=== PATIENT | male | born 1930 | race Caucasian/White ===

== ENCOUNTER → 2016-05-07 | Outpatient (CLI) | payer BC ==
[~2016-05-07] MED LIST: ASPI-346 PO; CLOP1TAB15 PO; MULT-351 PO; PRLSR20 PO; SIMV20TA2 PO
[2016-05-07 09:29] LABS: BASO % 0.4 %; BASO ABS # 0.03 K/uL (0-0.2); COMPLETE YES; HEMATOCRIT 40.7 % (42-52); IG% 0.1 %; LYMPH % 19.8 %; LYMPH ABS # 1.64 K/uL (1.2-3.4); MEAN CELL VOLUME 91.1 fL (80-100); MEAN CORPUSCULAR HEMOGLOBIN 30.9 pg (25-34); MEAN CORPUSCULAR HGB CONC 33.9 g/dl (32-36); MEAN PLATELET VOLUME 10.3 fL (7.4-10.4); MONO % 7.3 %; NEUT % 70.4 %; PLATELET COUNT 221 K/uL (130-400); RED BLOOD COUNT 4.47 M/uL (4.7-6.1)
[2016-05-07 10:07] LABS: ALT/SGPT 19 U/L (12-78); BLOOD UREA NITROGEN 22 mg/dl (7-18); BUN/CREATININE RATIO 23.4 (10-20); CALCIUM 9.3 mg/dl (8.5-10.1); CARBON DIOXIDE 29 mmol/L (21-32); CHLORIDE 106 mmol/L (98-107); CHOLESTEROL 141 mg/dl (0-200); CREATININE 0.92 mg/dl (0.60-1.40); GLUCOSE 89 mg/dl (70-99); POTASSIUM 4.8 mmol/L (3.5-5.1); SODIUM 143 mmol/L (136-145); TRIGLYCERIDES 92 mg/dl (0-150); VERY LOW DENSITY LIPOPROT CALC 18 mg/dl
[2016-05-07 10:10] LABS: ALB/GLOB RATIO 1.3 (0.9-2); ALKALINE PHOSPHATASE 73 U/L (45-117); AST/SGOT 22 U/L (15-37); CHOLESTEROL/HDL RATIO 3.5; HDL CHOLESTEROL 40 mg/dl; LDL CHOLESTEROL CALCULATED 83 mg/dl
== END | disposition home or self-care (01) ==
LOC: C.LAB1850 08:42
PROVIDERS: ATTEND Nurse Practitioner Family
DX: E78.5 Hyperlipidemia, unspecified (principal); E88.9 Metabolic disorder, unspecified; R73.9 Hyperglycemia, unspecified; K21.9 Gastro-esophageal reflux disease without esophagitis

== ENCOUNTER → 2016-10-25 | Outpatient (CLI) | payer BC ==
--- NOTE | 2016-10-25 11:29 | DIAGNOSTIC IMAGING REPORT ---
LEFT PELVIS UNILATERAL HIP 1 VIEW CLINICAL HISTORY: LEFT HIP PAIN COMPARISON STUDY: Left hip 10/20/2015. FINDINGS: There is a left total hip arthroplasty. The hardware appears intact. No fracture or dislocation within the pelvis or hips. No significant periprosthetic lucency. Mild right hip osteoarthritis, unchanged. The sacrum appears intact. IMPRESSION: 1. No fracture or dislocation within the pelvis or hips. 2. Left total hip arthroplasty. The hardware is intact. Electronically signed by: Tyler Pacheco M.D. 10/25/2016 11:28 AM Dictated Date/Time: 10/25/2016 11:26 AM
== END | disposition home or self-care (01) ==
LOC: C.RDSM 08:01
PROVIDERS: ATTEND Physician Assistant
DX: Z96.642 Presence of left artificial hip joint (principal); M25.552 Pain in left hip

== ENCOUNTER → 2016-11-01 | Outpatient (CLI) | payer BC ==
[2016-11-01 09:36] LABS: BASO % 0.5 %; BASO ABS # 0.04 K/uL (0-0.2); COMPLETE YES; EOS % 1.7 %; HEMATOCRIT 39.9 % (42-52); IG% 0.2 %; LYMPH % 17.5 %; LYMPH ABS # 1.45 K/uL (1.2-3.4); MEAN CELL VOLUME 89.7 fL (80-100); MEAN CORPUSCULAR HEMOGLOBIN 30.8 pg (25-34); MEAN CORPUSCULAR HGB CONC 34.3 g/dl (32-36); MONO % 9.9 %; NEUT % 70.2 %; PLATELET COUNT 234 K/uL (130-400); RED BLOOD COUNT 4.45 M/uL (4.7-6.1); WHITE BLOOD COUNT 8.29 K/uL (4.8-10.8)
[2016-11-01 10:11] LABS: ALT/SGPT 20 U/L (12-78); BLOOD UREA NITROGEN 24 mg/dl (7-18); BUN/CREATININE RATIO 23.7 (10-20); CALCIUM 9.1 mg/dl (8.5-10.1); CARBON DIOXIDE 28 mmol/L (21-32); CHLORIDE 107 mmol/L (98-107); CHOLESTEROL 121 mg/dl (0-200); GLUCOSE 94 mg/dl (70-99); POTASSIUM 4.8 mmol/L (3.5-5.1); SODIUM 141 mmol/L (136-145); TRIGLYCERIDES 74 mg/dl (0-150); VERY LOW DENSITY LIPOPROT CALC 15 mg/dl
[2016-11-01 10:15] LABS: ALB/GLOB RATIO 1.3 (0.9-2); ALKALINE PHOSPHATASE 76 U/L (45-117); AST/SGOT 24 U/L (15-37); HDL CHOLESTEROL 40 mg/dl; LDL CHOLESTEROL CALCULATED 66 mg/dl
[2016-11-01 10:15] LABS: RATIO 28.2 mcg/mg (0-30.0)
[2016-11-01 10:28] LABS: ESTIMATED AVERAGE GLUCOSE 120 mg/dl; HA1C FLAG Normal (Normal)
== END | disposition home or self-care (01) ==
LOC: C.LAB1850 08:37
PROVIDERS: ATTEND Nurse Practitioner Family
DX: E78.5 Hyperlipidemia, unspecified (principal); E88.9 Metabolic disorder, unspecified; R73.9 Hyperglycemia, unspecified; N40.1 Benign prostatic hyperplasia with lower urinary tract symptoms

== ENCOUNTER → 2017-05-08 | Outpatient (CLI) | payer BC ==
[2017-05-08 12:25] LABS: HEMOGLOBIN A1C 5.8 % (4.5-5.6)
[2017-05-08 12:39] LABS: ALT/SGPT 21 U/L (12-78); AST/SGOT 22 U/L (15-37); BLOOD UREA NITROGEN 26 mg/dl (7-18); CALCIUM 8.9 mg/dl (8.5-10.1); CARBON DIOXIDE 26 mmol/L (21-32); CHOLESTEROL 124 mg/dl (0-200); CREATININE 1.02 mg/dl (0.60-1.40); GLUCOSE 94 mg/dl (70-99); POTASSIUM 4.2 mmol/L (3.5-5.1); SODIUM 139 mmol/L (136-145)
[2017-05-08 12:41] LABS: ALKALINE PHOSPHATASE 77 U/L (45-117); LDL CHOLESTEROL CALCULATED 65 mg/dl
== END | disposition home or self-care (01) ==
LOC: C.LAB1850 09:56
PROVIDERS: ATTEND Nurse Practitioner Family
DX: E78.5 Hyperlipidemia, unspecified (principal); K21.9 Gastro-esophageal reflux disease without esophagitis; R73.9 Hyperglycemia, unspecified

== ENCOUNTER 2017-07-09 21:20 | Emergency (ER) | payer BC ==
[~2017-07-09] VITALS: Ht 180.3 cm; Wt 79.3 kg
[2017-07-09 21:20] VITALS: TEMP 36.7; Ht 180.3 cm; Wt 79.3 kg
--- NOTE | 2017-07-09 22:01 | DIAGNOSTIC IMAGING REPORT ---
L KNEE 1 OR 2 VIEWS ROUTINE CLINICAL HISTORY: Left knee pain status post fall. COMPARISON: Left knee radiographs August 12, 2012. FINDINGS: Alignment of the total left knee arthroplasty is anatomic. No periprosthetic fracture is identified. There is a small left knee joint effusion. IMPRESSION: 1. Status post total left knee arthroplasty. No periprosthetic fracture. 2. Small left knee joint effusion. Electronically signed by: Miach Jordan M.D. 07/09/2017 10:00 PM Dictated Date/Time: 07/09/2017 9:59 PM
--- NOTE | 2017-07-09 22:20 | EMERGENCY ROOM VISIT NOTE ---
ED Visit Note First contact with patient: 21:26 I have personally seen and evaluated the patient with the physician registered medical assistant. I agree with the diagnostic/management decisions and have personally been involved in these decisions and agree with the diagnosis.
--- NOTE | 2017-07-09 22:48 | EMERGENCY ROOM VISIT NOTE ---
History First contact with patient: 21:26 Chief Complaint: FALL Stated Complaint: FALL, L KNEE & UPPER LEG PAIN History of Present Illness The patient is a 86 year old male who presents to the Emergency Room with complaints of left knee pain and swelling after tripping and falling in his home this evening. The patient was carrying a laundry basket and tripped on a metal footstool. The patient reports that he fell and struck his left knee on the metal rail under a countertop. The patient reports that he was able to get up and walk, but since his fall, has noticed significant swelling of the knee. The patient is status post left total knee arthroplasty performed by Dr. Rivera many years ago. He also has a history of left total hip arthroplasty performed by Dr. Perez. The patient denies any other injuries from his fall, and denies head injury, neck pain or back pain. The patient is currently on Plavix and baby aspirin for prior history of cerebral thrombosis. The patient was transported here by ambulance and currently rates his discomfort a 5 out of 10 on my exam. Review of Systems 10 system review was performed and was negative except for pertinent positives and negatives as indicated in history of present illness Past Medical/Surgical History Medical Problems: (1) Cerebral Thrombosis W Cerebral Infarction (2) Diverticulosis Colon (W/O Ment Of Hemorrhage) (3) GERD (gastroesophageal reflux disease) (4) Hyperlipidemia Nec/Nos Surgical Problems: (1) History of hernia repair Family History Cancer Diabetes mellitus FHx: gallbladder disease Social History Smoking Status: Former Smoker Alcohol Use: none Marital Status: Housing Status: lives with significant other Occupation Status: retired Current/Historical Medications Scheduled Aspirin (Derrick Low Dose), 81 MG PO QAM Clopidogrel (Plavix), 75 MG PO QAM Multiple Vitamin (Multi Vitamin Mens), 1 TAB PO DAILY Omeprazole (Prilosec), 20 MG PO DAILY Simvastatin (Zocor), 20 MG PO DAILY Physical Exam Vital Signs Date Time Temp Pulse Resp B/P (MAP) Pulse Ox O2 Delivery O2 Flow Rate FiO2 07/09/17 21:20 36.7 54 18 154/86 98 Room Air Physical Exam CONSTITUTIONAL: Healthy and well nourished. Alert and oriented X 3 with positive affect. Patient does not appear in any acute distress on my exam. HEENT: Normocephalic, atraumatic. Pupils equal, round and reactive. No abrasions, ecchymosis or soft tissue edema. NECK: Full active range of motion without discomfort. RESPIRATORY: Clear to auscultation bilaterally with no wheezing, crackles, rhonchi or stridor. CARDIOVASCULAR: Regular rate and rhythm with no murmurs, rubs or gallops. GASTROINTESTINAL: Bowel sounds present in all quadrants. Soft and nontender to palpation. MUSCULOSKELETAL: Examination of the left knee shows notable lateral soft tissue edema and ecchymosis. No lacerations noted. Patient also has a 2+ joint effusion. Collateral ligaments are intact. He has no focal tenderness to palpation through the medial joint line. Passive range of motion causes only mild discomfort. Patient has no tenderness to palpation through the tibia or ankle region. Pedal pulses are intact. Negative logroll. Pelvis stable with rock. No focal tenderness to palpation through the central lumbar spine or paraspinous muscles. INTEGUMENTARY: No rash or other significant dermatologic conditions noted. NEUROLOGIC: Left lower extremity is sensory intact. Medical Decision & Procedures ER Provider Diagnostic Interpretation: My interpretation of left knee x-rays shows a small joint effusion without evidence for dislocation or periprosthetic fracture. Radiologist report is as follows: L KNEE 1 OR 2 VIEWS ROUTINE CLINICAL HISTORY: Left knee pain status post fall. COMPARISON: Left knee radiographs August 12, 2012. FINDINGS: Alignment of the total left knee arthroplasty is anatomic. No periprosthetic fracture is identified. There is a small left knee joint effusion. IMPRESSION: 1. Status post total left knee arthroplasty. No periprosthetic fracture. 2. Small left knee joint effusion. ED Course Patient history and physical exam were performed. Nurse's notes were reviewed. Vital signs were reviewed, showing an elevated blood pressure 154/86. The patient refused any analgesics on initial exam. X-rays of the left knee were normal except for a mild joint effusion. An Gaetano wrap was applied to the knee, and trial ambulation using a walker was successful. The patient reports that he has a walker at home. He was encouraged intermittently apply ice and elevate the knee for swelling. Tylenol as needed for pain. The family was instructed to call [facility] for follow-up. The patient was happy with plan of care, voiced understanding of all discharge instructions, and refused any analgesics prior to discharge, rating his pain a 6 out of 10. The patient was also seen and examined by Dr. Mishock, ED attending physician, who agrees with workup and plan of care. Medical Decision Medication Reconcilliation Current Medication List: was personally reviewed by me Blood Pressure Screening Patient's blood pressure: Normal blood pressure Impression Primary Impression: Traumatic hematoma of left knee Additional Impression: Fall from slip, trip, or stumble Departure Information Referrals Iván Sanz III, CRNP (PCP) Patient Instructions My [facility] Problem Qualifiers Primary Impression: Traumatic hematoma of left knee Encounter type: initial encounter Qualified Codes: S80.02XA - Contusion of left knee, initial encounter Additional Impression: Fall from slip, trip, or stumble Encounter type: initial encounter Qualified Codes: W01.0XXA - Fall on same level from slipping, tripping and stumbling without subsequent striking against object, initial encounter
[2017-07-09 23:00] VITALS: BP 135/60; PULSE 50; O2SAT 99
== END 2017-07-09 23:00 | disposition home or self-care (01) ==
LOC: EDBD 21:20 → C.EDB 21:21
DX: S80.02XA Contusion of left knee, initial encounter (principal); W01.0XXA Fall on same level from slipping, tripping and stumbling without subsequent striking against object, initial encounter; E78.5 Hyperlipidemia, unspecified; K57.30 Diverticulosis of large intestine without perforation or abscess without bleeding; K21.9 Gastro-esophageal reflux disease without esophagitis; Z96.652 Presence of left artificial knee joint; Z96.642 Presence of left artificial hip joint; Z79.01 Long term (current) use of anticoagulants; Z79.82 Long term (current) use of aspirin; Z86.73 Personal history of transient ischemic attack (TIA), and cerebral infarction without residual deficits; Z87.891 Personal history of nicotine dependence; Z83.3 Family history of diabetes mellitus

== ENCOUNTER → 2017-07-10 | Outpatient (CLI) | payer BC ==
--- NOTE | 2017-07-10 14:17 | DIAGNOSTIC IMAGING REPORT ---
AP PELVIS AND FROG LEG LATERAL LEFT HIP CLINICAL HISTORY: S/P TOTAL HIP ARTHROPLASTY. Fall. Left hip pain. COMPARISON STUDY: Pelvis and left hip 10/25/2016. FINDINGS: There is again noted a left total hip arthroplasty. The hardware appears intact. No acute fracture or dislocation within the left hip. Visualized pelvic bones. Mild osteoarthritis within the right hip persists. Mild soft tissue swelling within the lateral aspect of the left hip. IMPRESSION: No fracture or dislocation within the left hip. Electronically signed by: Tyelr Pacheco M.D. 07/10/2017 2:16 PM Dictated Date/Time: 07/10/2017 2:13 PM
== END | disposition home or self-care (01) ==
LOC: C.RDSM 14:10
PROVIDERS: ATTEND Physician Assistant
DX: Z96.642 Presence of left artificial hip joint (principal)

== ENCOUNTER 2020-05-06 14:51 | Observation (INO) ==
[2020-05-06] MEDS ORDERED: SODIUM CHLORIDE 0.9% 1000ML 1,000 ML IV STA (14:58)
--- NOTE | 2020-05-06 15:23 | Emergency Department Note ---
Impression & Plan SOB (shortness of breath) ED Provider Note INFORMANT: Patient ED PROVIDER(S): Tobias Petersen MD CHIEF COMPLAINT: Shortness of breath PLAN: Disposition: Admitted Condition: Good Outpatient prescription management: none Referral: None MEDICAL DECISION MAKING: Patient presented to the emergency department with shortness of breath. There is also some concern about possible GI bleed. Rectal examination was negative. A repeat test on stool was negative as well. The patient had an unremarkable CBC and chemistry panel. His troponin was normal. There was some delay in resulting from the lab. The patient's BNP was markedly elevated concerning for CHF. There was mild CHF findings on chest x-ray. The patient was maintaining his saturations and blood pressure. I did consult with Dr. Hester of cardiology. He felt initiation of diuretic would be reasonable. He could see the patient tomorrow if he was admitted or if the patient wanted to go home he could start the work-up next week. I did talk with the patient's daughter and she noted significant increase symptoms over the last few days. She was concerned about him going home as he lives alone. I discussed this with the patient and he agreed to stay. He was given IV Lasix and oral potassium. I did consult with Dr. Oswald Bee of the hospitalist service. Patient was admitted. Triage Nursing notes reviewed and agree them. Additional history obtained from patient's daughter. Vital Signs: reviewed and remarkable for no significant abnormalities Differential diagnosis: GI bleed, symptomatic anemia reactive airway disease, pneumonia, pneumothorax, COPD, CHF, infections, cardiac ischemia, pulmonary embolism, musculoskeletal, gastrointestinal, as well as other pathologies. Diagnostics interpreted by me: ECG: Rate: 69 Rhythm:Normal sinus [place]:Normal QRS:Normal ST segements:No elevation or depression Other:No PACs or PVCs Cardiac Monitoring: Cardiac monitoring ordered by me: The patient was placed on continuous cardiac monitoring and observed. It revealed a normal sinus rhythm at 72 beats per minute without ectopy or evidence of dysrhythmia. Imaging studies: Chest x-ray consistent with mild CHF. I refer you to the EMR for further details HPI: The patient is a 89 year old male who presents to the Emergency Room with complaints of dyspnea on exertion. This started a few weeks ago and is persisting The patient also notes the following associated symptoms, black stools and little diarrhea. The patient has has been prescribed no relieving factors. Current pain is rated as 0/10. Pt denies LOC, headache, fevers, chills, diaphoresis, visual changes, neck pain, chest pain, nausea, vomiting, abdominal pain, back pain, hematochezia, urinary symptoms, numbness, weakness, lymphadenopathy, rash, or other complaints. ROS: See above HPI for pertinent positives & negatives. A total of 10 systems reviewed and were otherwise negative. PAST MEDICAL HISTORY:See Below , GERD, high cholesterol PAST SURGICAL HISTORY:See Below, FAMILY HISTORY:See Below SOCIAL HISTORY:See Below, HOME MEDICATIONS:See Below ALLERGIES:See Below VITALS:See Below PHYSICAL EXAMINATION: GENERAL: Awake, alert, tired-appearing, in no distress HENT: Normocephalic, atraumatic. Oropharynx unremarkable. EYES: Normal conjunctiva. Sclera non-icteric. NECK: Inspection normal. Non-tender. Supple. No nuchal rigidity. FROM. No mass es. RESPIRATORY: Clear to auscultation. No wheezes. No rales. Normal respiratory effort. CARDIAC: Normal rate. Normal rhythm. No murmurs. No rubs. Extremities warm and well perfused. Pulses equal. No JVD. GI: Soft, non-distended. No tenderness to palpation. No rebound or guarding. No masses. RECTAL: Brown stool. Heme-negative. MUSCULOSKELETAL: Atraumatic. Chest examination reveals no tenderness. The back is symmetrical on inspection without obvious abnormality. There is no CVA tenderness to palpation. No joint edema. LOWER EXTREMITIES: Calves are equal size bilaterally and non-tender. Trace edema. No discoloration. NEURO: Normal sensorium. No sensory or motor deficits noted. SKIN: No rash or jaundice noted. 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) Diverticulosis of colon (03/08/11) Head injury Need for immunization against rabies Surgical History History of hernia repair History of left knee replacement Family History Sister Breast cancer Mother Diabetes Denies family history of Ovarian cancer Prostate cancer Myocardial infarction Colorectal cancer Social History Smoking Status: Never smoker Tobacco Type: Pipe Age Started Using Tobacco: 21; Age Quit Using Tobacco: 41; Hx Alcohol Use: No Hx Substance Use: No Preferred Language: Ukrainian Communication Ability: Effective Visual Impairment: No Limitations Hearing Ability: Normal marital status: / Current Living Situation: Alone current occupational status: retired Feels Safe at Home: Yes Childhood Exposure to Second-Hand Smoke: No Dental Care, Regularly: No Physical Activity Frequency: Does not Exercise Seatbelt Use: always Sunscreen Use: No Do you think of yourself as: straight/heterosexual Allergies Allergies Allergy/AdvReac Type Severity Reaction Status Date / Time Sulfa (Sulfonamide Allergy Mild Rash Verified 05/06/20 15:56 Antibiotics) Home Meds Home Medications Medication Instructions Recorded Confirmed aspirin 81 mg tablet,delayed 81 mg PO DAILY 01/01/19 05/06/20 release [id number] acid 0.4 1 tab PO DAILY 01/01/19 05/06/20 mg-lycopene 300 mcg-lutein 250 mcg tablet Previous Rx's Medication Instructions Recorded clopidogrel 75 mg tablet 75 mg PO DAILY #90 tab 10/20/19 omeprazole 20 mg capsule,delayed 20 mg PO DAILY #90 cap 10/20/19 release simvastatin 20 mg tablet 20 mg PO QPM #90 tab 10/20/19 Results & Data (ED) Vital Signs Vital Signs - 24 hr 05/06/20 14:54 05/06/20 15:30 05/06/20 15:48 Temperature 36.2 C L Temperature Source Oral Pulse Rate 80 62 Pulse Rate [Apical] Pulse Rate [Exercises] Pulse Rate from SpO2 Sensor Respiratory Rate 20 21 Respiratory Rate [Exercises] Blood Pressure 114/81 Blood Pressure [Right Arm] Blood Pressure Mean 92 Blood Pressure Mean [Right Arm] Pulse Oximetry 98 96 Pulse Oximetry [Exercises] Oxygen Delivery Method Room Air Room Air Sepsis Recent Fever Within 48 Hours No Sepsis New/Unexplained Change in Mental Status N/A Sepsis Action Taken by Nursing No Action Required 05/06/20 15:50 05/06/20 16:00 05/06/20 16:01 Temperature Temperature Source Pulse Rate 62 63 61 Pulse Rate [Apical] Pulse Rate [Exercises] Pulse Rate from SpO2 Sensor Respiratory Rate 20 21 21 Respiratory Rate [Exercises] Blood Pressure 109/68 Blood Pressure [Right Arm] Blood Pressure Mean 79 Blood Pressure Mean [Right Arm] Pulse Oximetry Pulse Oximetry [Exercises] Oxygen Delivery Method Sepsis Recent Fever Within 48 Hours Sepsis New/Unexplained Change in Mental Status Sepsis Action Taken by Nursing 05/06/20 16:10 05/06/20 16:20 05/06/20 16:30 Temperature Temperature Source Pulse Rate 61 60 61 Pulse Rate [Apical] Pulse Rate [Exercises] Pulse Rate from SpO2 Sensor Respiratory Rate 19 17 20 Respiratory Rate [Exercises] Blood Pressure 129/60 Blood Pressure [Right Arm] Blood Pressure Mean 74 Blood Pressure Mean [Right Arm] Pulse Oximetry Pulse Oximetry [Exercises] Oxygen Delivery Method Sepsis Recent Fever Within 48 Hours Sepsis New/Unexplained Change in Mental Status Sepsis Action Taken by Nursing 05/06/20 16:31 05/06/20 16:40 05/06/20 16:50 Temperature Temperature Source Pulse Rate 64 62 61 Pulse Rate [Apical] Pulse Rate [Exercises] Pulse Rate from SpO2 Sensor Respiratory Rate 19 19 21 Respiratory Rate [Exercises] Blood Pressure Blood Pressure [Right Arm] Blood Pressure Mean Blood Pressure Mean [Right Arm] Pulse Oximetry Pulse Oximetry [Exercises] Oxygen Delivery Method Sepsis Recent Fever Within 48 Hours Sepsis New/Unexplained Change in Mental Status Sepsis Action Taken by Nursing 05/06/20 17:00 05/06/20 17:01 05/06/20 17:10 Temperature Temperature Source Pulse Rate 62 62 62 Pulse Rate [Apical] Pulse Rate [Exercises] Pulse Rate from SpO2 Sensor Respiratory Rate 19 15 19 Respiratory Rate [Exercises] Blood Pressure 122/70 Blood Pressure [Right Arm] Blood Pressure Mean 81 Blood Pressure Mean [Right Arm] Pulse Oximetry Pulse Oximetry [Exercises] Oxygen Delivery Method Sepsis Recent Fever Within 48 Hours Sepsis New/Unexplained Change in Mental Status Sepsis Action Taken by Nursing 05/06/20 17:20 05/06/20 17:30 05/06/20 17:31 Temperature Temperature Source Pulse Rate 62 72 70 Pulse Rate [Apical] Pulse Rate [Exercises] Pulse Rate from SpO2 Sensor 62 Respiratory Rate 20 21 22 Respiratory Rate [Exercises] Blood Pressure 122/96 Blood Pressure [Right Arm] Blood Pressure Mean 100 Blood Pressure Mean [Right Arm] Pulse Oximetry 98 Pulse Oximetry [Exercises] Oxygen Delivery Method Sepsis Recent Fever Within 48 Hours Sepsis New/Unexplained Change in Mental Status Sepsis Action Taken by Nursing 05/06/20 17:40 05/06/20 17:50 05/06/20 18:00 Temperature Temperature Source Pulse Rate 63 64 64 Pulse Rate [Apical] Pulse Rate [Exercises] Pulse Rate from SpO2 Sensor Respiratory Rate 16 21 22 Respiratory Rate [Exercises] Blood Pressure 114/72 Blood Pressure [Right Arm] Blood Pressure Mean 80 Blood Pressure Mean [Right Arm] Pulse Oximetry Pulse Oximetry [Exercises] Oxygen Delivery Method Sepsis Recent Fever Within 48 Hours Sepsis New/Unexplained Change in Mental Status Sepsis Action Taken by Nursing 05/06/20 18:01 05/06/20 18:18 05/06/20 18:20 Temperature Temperature Source Pulse Rate 64 79 64 Pulse Rate [Apical] Pulse Rate [Exercises] Pulse Rate from SpO2 Sensor Respiratory Rate 24 24 20 Respiratory Rate [Exercises] Blood Pressure Blood Pressure [Right Arm] Blood Pressure Mean Blood Pressure Mean [Right Arm] Pulse Oximetry Pulse Oximetry [Exercises] Oxygen Delivery Method Sepsis Recent Fever Within 48 Hours Sepsis New/Unexplained Change in Mental Status Sepsis Action Taken by Nursing 05/06/20 18:30 05/06/20 18:40 05/06/20 18:50 Temperature Temperature Source Pulse Rate 64 61 63 Pulse Rate [Apical] Pulse Rate [Exercises] Pulse Rate from SpO2 Sensor 57 L 61 Respiratory Rate 16 19 22 Respiratory Rate [Exercises] Blood Pressure Blood Pressure [Right Arm] Blood Pressure Mean Blood Pressure Mean [Right Arm] Pulse Oximetry 96 96 Pulse Oximetry [Exercises] Oxygen Delivery Method Sepsis Recent Fever Within 48 Hours Sepsis New/Unexplained Change in Mental Status Sepsis Action Taken by Nursing 05/06/20 18:51 05/06/20 19:00 05/06/20 19:10 Temperature Temperature Source Pulse Rate 58 L 63 Pulse Rate [Apical] Pulse Rate [Exercises] 78 Pulse Rate from SpO2 Sensor Respiratory Rate 21 18 Respiratory Rate [Exercises] 21 Blood Pressure Blood Pressure [Right Arm] Blood Pressure Mean Blood Pressure Mean [Right Arm] Pulse Oximetry Pulse Oximetry [Exercises] 94 Oxygen Delivery Method Room Air Sepsis Recent Fever Within 48 Hours Sepsis New/Unexplained Change in Mental Status Sepsis Action Taken by Nursing 05/06/20 19:20 05/06/20 19:30 05/06/20 19:40 Temperature Temperature Source Pulse Rate 59 L 61 58 L Pulse Rate [Apical] Pulse Rate [Exercises] Pulse Rate from SpO2 Sensor Respiratory Rate 22 20 18 Respiratory Rate [Exercises] Blood Pressure Blood Pressure [Right Arm] Blood Pressure Mean Blood Pressure Mean [Right Arm] Pulse Oximetry Pulse Oximetry [Exercises] Oxygen Delivery Method Sepsis Recent Fever Within 48 Hours Sepsis New/Unexplained Change in Mental Status Sepsis Action Taken by Nursing 05/06/20 19:50 05/06/20 20:00 05/06/20 20:10 Temperature Temperature Source Pulse Rate 57 L 57 L 58 L Pulse Rate [Apical] Pulse Rate [Exercises] Pulse Rate from SpO2 Sensor Respiratory Rate 17 25 H 25 H Respiratory Rate [Exercises] Blood Pressure Blood Pressure [Right Arm] Blood Pressure Mean Blood Pressure Mean [Right Arm] Pulse Oximetry Pulse Oximetry [Exercises] Oxygen Delivery Method Sepsis Recent Fever Within 48 Hours Sepsis New/Unexplained Change in Mental Status Sepsis Action Taken by Nursing 05/06/20 20:20 05/06/20 20:30 05/06/20 20:40 Temperature Temperature Source Pulse Rate 58 L 64 68 Pulse Rate [Apical] Pulse Rate [Exercises] Pulse Rate from SpO2 Sensor Respiratory Rate 23 18 12 Respiratory Rate [Exercises] Blood Pressure Blood Pressure [Right Arm] Blood Pressure Mean Blood Pressure Mean [Right Arm] Pulse Oximetry Pulse Oximetry [Exercises] Oxygen Delivery Method Sepsis Recent Fever Within 48 Hours Sepsis New/Unexplained Change in Mental Status Sepsis Action Taken by Nursing 05/06/20 20:50 05/06/20 21:00 05/06/20 21:10 Temperature Temperature Source Pulse Rate 58 L 58 L 58 L Pulse Rate [Apical] Pulse Rate [Exercises] Pulse Rate from SpO2 Sensor Respiratory Rate 18 15 22 Respiratory Rate [Exercises] Blood Pressure Blood Pressure [Right Arm] Blood Pressure Mean Blood Pressure Mean [Right Arm] Pulse Oximetry Pulse Oximetry [Exercises] Oxygen Delivery Method Sepsis Recent Fever Within 48 Hours Sepsis New/Unexplained Change in Mental Status Sepsis Action Taken by Nursing 05/06/20 21:17 05/06/20 21:20 05/06/20 21:21 Temperature Temperature Source Pulse Rate 64 Pulse Rate [Apical] 70 Pulse Rate [Exercises] Pulse Rate from SpO2 Sensor Respiratory Rate 19 14 20 Respiratory Rate [Exercises] Blood Pressure 109/62 Blood Pressure [Right Arm] 109/62 Blood Pressure Mean 75 Blood Pressure Mean [Right Arm] 77 Pulse Oximetry 98 Pulse Oximetry [Exercises] Oxygen Delivery Method Room Air Sepsis Recent Fever Within 48 Hours Sepsis New/Unexplained Change in Mental Status Sepsis Action Taken by Nursing Laboratory Data Result diagrams: 05/06/20 15:18 05/06/20 15:18 Lab Results 05/06/20 05/06/20 05/06/20 Range/Units 15:18 15:18 15:18 WBC 7.73 (4.8-10.8) K/uL RBC 4.50 L (4.7-6.1) M/uL Hgb 13.9 L (14.0-18.0) g/dL Hct 39.2 L (42-52) % MCV 87.1 (80-100) fL MCH 30.9 (25-34) pg MCHC 35.5 (32-36) g/dL RDW Std Deviation 43.4 (36.4-46.3) fL RDW Coeff of Lukas 13.6 (11.5-14.5) % Plt Count 277 (130-400) K/uL MPV 10.7 H (7.4-10.4) fL Immature Gran % (Auto) 0.1 % Neut % (Auto) 60.0 % Lymph % (Auto) 17.5 % [place] % (Auto) 20.1 % Eos % (Auto) 2.2 % Baso % (Auto) 0.1 % Neut # (Auto) 4.64 (1.4-6.5) K/uL Lymph # (Auto) 1.35 (1.2-3.4) K/uL [place] # (Auto) 1.55 H (0.11-0.59) K/uL Eos # (Auto) 0.17 (0-0.5) K/uL Baso # (Auto) 0.01 (0-0.2) K/uL Immature Gran # (Auto) 0.01 (0.00-0.02) K/uL PT 12.1 H (9.0-12.0) Seconds INR 1.2 H (0.9-1.1) APTT 29.1 (21.0-31.0) Seconds PTT Ratio 1.0 Sodium (136-145) mmol/L Potassium (3.5-5.1) mmol/L Chloride (98-107) mmol/L Carbon Dioxide (21-32) mmol/L Anion Gap (3-11) BUN (7-18) mg/dl Creatinine (0.6-1.4) mg/dl Est Cr Clr Drug Dosing ml/min Est GFR ( Amer) Est GFR (Non-Af Amer) BUN/Creatinine Ratio (10-20) Glucose (70-99) mg/dl Calcium (8.5-10.1) mg/dl Total Bilirubin (0.2-1) mg/dl AST (15-37) U/L ALT (12-78) U/L Alkaline Phosphatase (45-117) U/L Troponin I (0-0.045) ng/ml NT-Pro-B Natriuret Pep (0-1800) pg/ml Total Protein (6.4-8.2) gm/dl Albumin (3.4-5.0) gm/dl Globulin (2.5-4.0) gm/dl Albumin/Globulin Ratio (0.9-2) POC Stool Occult Blood (Negative) COVID-19 Eval Order SARS-CoV-2 (PCR) (Negative) Influenza Type A (PCR) (Neg) Influenza Type B (PCR) (Neg) RSV (RT-PCR) (Neg) Blood Type A Positive Antibody Screen NEGATIVE 05/06/20 05/06/20 05/06/20 Range/Units 15:18 15:30 15:30 WBC (4.8-10.8) K/uL RBC (4.7-6.1) M/uL Hgb (14.0-18.0) g/dL Hct (42-52) % MCV (80-100) fL MCH (25-34) pg MCHC (32-36) g/dL RDW Std Deviation (36.4-46.3) fL RDW Coeff of Lukas (11.5-14.5) % Plt Count (130-400) K/uL MPV (7.4-10.4) fL Immature Gran % (Auto) % Neut % (Auto) % Lymph % (Auto) % [place] % (Auto) % Eos % (Auto) % Baso % (Auto) % Neut # (Auto) (1.4-6.5) K/uL Lymph # (Auto) (1.2-3.4) K/uL [place] # (Auto) (0.11-0.59) K/uL Eos # (Auto) (0-0.5) K/uL Baso # (Auto) (0-0.2) K/uL Immature Gran # (Auto) (0.00-0.02) K/uL PT (9.0-12.0) Seconds INR (0.9-1.1) APTT (21.0-31.0) Seconds PTT Ratio Sodium 137 (136-145) mmol/L Potassium 3.5 (3.5-5.1) mmol/L Chloride 105 (98-107) mmol/L Carbon Dioxide 22 (21-32) mmol/L Anion Gap 10.0 (3-11) BUN 36 H (7-18) mg/dl Creatinine 1.55 H (0.6-1.4) mg/dl Est Cr Clr Drug Dosing 30.8 ml/min Est GFR ( Amer) 45.6 Est GFR (Non-Af Amer) 39.4 BUN/Creatinine Ratio 22.9 H (10-20) Glucose 106 H (70-99) mg/dl Calcium 9.0 (8.5-10.1) mg/dl Total Bilirubin 0.6 (0.2-1) mg/dl AST 33 (15-37) U/L ALT 40 (12-78) U/L Alkaline Phosphatase 84 (45-117) U/L Troponin I (0-0.045) ng/ml NT-Pro-B Natriuret Pep 4887 H (0-1800) pg/ml Total Protein 7.2 (6.4-8.2) gm/dl Albumin 3.4 (3.4-5.0) gm/dl Globulin 3.8 (2.5-4.0) gm/dl Albumin/Globulin Ratio 0.9 (0.9-2) POC Stool Occult Blood (Negative) COVID-19 Eval Order [facility]Rsv at [facility] SARS-CoV-2 (PCR) NEGATIVE (Negative) Influenza Type A (PCR) Negative (Neg) Influenza Type B (PCR) Negative (Neg) RSV (RT-PCR) Negative (Neg) Blood Type Antibody Screen 05/06/20 05/06/20 Range/Units 19:13 Unknown WBC (4.8-10.8) K/uL RBC (4.7-6.1) M/uL Hgb (14.0-18.0) g/dL Hct (42-52) % MCV (80-100) fL MCH (25-34) pg MCHC (32-36) g/dL RDW Std Deviation (36.4-46.3) fL RDW Coeff of Lukas (11.5-14.5) % Plt Count (130-400) K/uL MPV (7.4-10.4) fL Immature Gran % (Auto) % Neut % (Auto) % Lymph % (Auto) % [place] % (Auto) % Eos % (Auto) % Baso % (Auto) % Neut # (Auto) (1.4-6.5) K/uL Lymph # (Auto) (1.2-3.4) K/uL [place] # (Auto) (0.11-0.59) K/uL Eos # (Auto) (0-0.5) K/uL Baso # (Auto) (0-0.2) K/uL Immature Gran # (Auto) (0.00-0.02) K/uL PT (9.0-12.0) Seconds INR (0.9-1.1) APTT (21.0-31.0) Seconds PTT Ratio Sodium (136-145) mmol/L Potassium (3.5-5.1) mmol/L Chloride (98-107) mmol/L Carbon Dioxide (21-32) mmol/L Anion Gap (3-11) BUN (7-18) mg/dl Creatinine (0.6-1.4) mg/dl Est Cr Clr Drug Dosing ml/min Est GFR ( Amer) Est GFR (Non-Af Amer) BUN/Creatinine Ratio (10-20) Glucose (70-99) mg/dl Calcium (8.5-10.1) mg/dl Total Bilirubin (0.2-1) mg/dl AST (15-37) U/L ALT (12-78) U/L Alkaline Phosphatase (45-117) U/L Troponin I < 0.015 (0-0.045) ng/ml NT-Pro-B Natriuret Pep (0-1800) pg/ml Total Protein (6.4-8.2) gm/dl Albumin (3.4-5.0) gm/dl Globulin (2.5-4.0) gm/dl Albumin/Globulin Ratio (0.9-2) POC Stool Occult Blood Negative (Negative) COVID-19 Eval Order SARS-CoV-2 (PCR) (Negative) Influenza Type A (PCR) (Neg) Influenza Type B (PCR) (Neg) RSV (RT-PCR) (Neg) Blood Type Antibody Screen Administered Medications Sodium Chloride (Nss 1000ml) 1,000 mls @ 125 mls/hr IV .Q8H STA Stop: 05/06/20 22:57 Last Infusion: 05/06/20 21:22 Dose: 0 mls/hr Documented by: [id number] Admin: 05/06/20 15:45 Dose: 125 mls/hr Documented by: [id number] Discontinued Medications Furosemide (Furosemide 40 Mg/4 Ml Vial) 20 mg IV NOW STA Stop: 05/06/20 21:08 Last Admin: 05/06/20 21:14 Dose: 20 mg Documented by: [id number] Potassium Chloride (Potassium Chloride Crtab 20 Meq Tabcr) 20 meq PO NOW STA Stop: 05/06/20 21:08 Last Admin: 05/06/20 21:14 Dose: 20 meq Documented by: [id number] Discharge Plan Visit Data Chief Complaint: GI Bleed Stated Complaint: SOB, DIARRHEA, FATIQUED, CAN'T EAT,BLACK STOOL ED Provider: Tobias Petersen Discharge Problem: SOB (shortness of breath) Forms Stand Alone Forms: My [facility] Prescriptions Prescriptions: No Action clopidogrel 75 mg tablet 75 mg PO DAILY Qty: 90 RF: 3 omeprazole 20 mg capsule,delayed release(DR/EC) 20 mg PO DAILY Qty: 90 RF: 3 simvastatin 20 mg tablet 20 mg PO QPM Qty: 90 RF: 3 Centrum Silver 0.4-300-250 mg-mcg-mcg tablet 1 tab PO DAILY RF: 0 aspirin 81 mg tablet,delayed release (DR/EC) 81 mg PO DAILY RF: 0
[2020-05-06 15:51] LABS: Basophils # (auto) 0.01 K/uL (0-0.2); Basophils % (auto) 0.1 %; Eosinophils # (auto) 0.17 K/uL (0-0.5); Eosinophils % (auto) 2.2 %; Hematocrit (blood only) 39.2 % (42-52); Hemoglobin 13.9 g/dL (14.0-18.0); Immature Granulocytes # (auto) 0.01 K/uL (0.00-0.02); Immature Granulocytes % (auto) 0.1 %; Lymphocytes # (auto) 1.35 K/uL (1.2-3.4); Lymphocytes % (auto) 17.5 %; Mean Corpuscular Hemoglobin 30.9 pg (25-34); Mean Corpuscular Hgb Conc 35.5 g/dL (32-36); Mean Corpuscular Volume 87.1 fL (80-100); Mean Platelet Volume 10.7 fL (7.4-10.4); Monocytes # (auto) 1.55 K/uL (0.11-0.59); Monocytes % (auto) 20.1 %; Neutrophils # (auto) 4.64 K/uL (1.4-6.5); Platelet Count 277 K/uL (130-400); RDW Coefficient of Variation 13.6 % (11.5-14.5); RDW Standard Deviation 43.4 fL (36.4-46.3); White Blood Count 7.73 K/uL (4.8-10.8)
[2020-05-06 16:03] LABS: INR 1.2 (0.9-1.1); Partial Thromboplastin Time 29.1 Seconds (21.0-31.0); Prothrombin Time 12.1 Seconds (9.0-12.0)
[2020-05-06 16:08] LABS: Albumin Level 3.4 gm/dl (3.4-5.0); BUN Creatinine Ratio 22.9 (10-20); Creatinine Clr Calc Pharmacy 30.8 ml/min; Est GFR (African American) 45.6; Est GFR (Non-African American) 39.4; Potassium 3.5 mmol/L (3.5-5.1)
[2020-05-06 16:20] LABS: Albumin Globulin Ratio 0.9 (0.9-2); Bilirubin,Total 0.6 mg/dl (0.2-1); Total Protein 7.2 gm/dl (6.4-8.2)
[2020-05-06 17:07] LABS: Influenza A virus by PCR Negative (Neg); Influenza B virus by PCR Negative (Neg); RSV by PCR Negative (Neg); SARS CoV2 RNA(COVID-19) InHosp NEGATIVE (Negative)
[2020-05-06 17:18] LABS: Globulin 3.8 gm/dl (2.5-4.0)
--- NOTE | 2020-05-06 17:40 | XRay Report ---
XR chest 1V portable CLINICAL HISTORY: Shortness of breath COMPARISON STUDY: 10/17/2012 FINDINGS: The cardiac and mediastinal contours remain stable. There is mild scoliosis. There is aorti c tortuosity. There is mild interstitial thickening. Likely diagnostic considerations include mild CH F, chronic interstitial lung disease or an interstitial infectious/inflammatory process. There are ca lcified right infrahilar granulomas. There is no lobar consolidation. There are no pleural effusions. IMPRESSION: 1. Mild interstitial thickening. Likely diagnostic considerations include mild CHF, chronic interstit ial lung disease or an acute interstitial infectious/inflammatory process. Clinical and radiographic follow-up recommended. ACT 112: Negative or not required by law. Electronically signed by: Amado Larson M.D. 05/06/2020 5:39 PM
[2020-05-06] MEDS ORDERED: POTASSIUM CHLORIDE CRTAB 20 MEQ TABCR PO STA (21:07)
[2020-05-06] MEDS ORDERED: FUROSEMIDE 40 MG/4 ML VIAL IV STA (21:07)
--- NOTE | 2020-05-06 21:51 | History & Physical Report ---
Date of Service May 06, 2020 Assessment & Plan (1) SOB (shortness of breath): Patient is a very pleasant 89 year old male with PMHx cerebral vascular disease with mild neurocognitive disorder, BPH, hyperlipidemia who was noted to have worsening SOB and fatigue over the past several weeks and dark stools concerning for GI bleed. He had discussed these concerns with his PCP earlier in the day who had recommended the patient be evaluated in the ED for above concerns. Shortness of Breath -In ED was given 20mg IV Lasix -Though BNP elevated, patients clinical exam appears relatively euvolemic at time of evaluation -Lungs CTA b/l, no LE Edema, no JVD - low suspicion at this time for heart failure -Difficult to properly obtain an accurate course of events from patient as patient "can't seem to remember." -Will monitor overnight -Strict I/O RANDY -Creatinine mildly elevated on admission 1.55 -Likely pre-renal -Received IVF in ED -Encourage Po intake BPH w/ obstruction -Patient notes he has been self-cathing himself for "over 9 years now" -Will straight cath PRN Concern for GI Bleed -Hemoccult in ED negative -Hgb 13.9 -Vitals stable Hx Cerebrovascular Thrombosis -Continue home ASA -Continue home Clopidogrel HLD -Continue home Simvastatin GERD -Continue home Omeprazole Dispo: Med/Surg Telemetry FEN: HH diet DVT: SCD Code: Full History of Present Illness Chief Complaint: SOB Primary Care Provider: Iván Sanz, III, FRITZ Patient is a very pleasant 89 year old male with PMHx cerebral vascular disease with mild neurocognitive disorder, BPH, hyperlipidemia who was noted to have worsening SOB and fatigue over the past several weeks and dark stools concerning for GI bleed. He had discussed these concerns with his PCP earlier in the day who had recommended the patient be evaluated in the ED for above concerns. At time of evaluation patient notes that over all he is feeling well and he's unsure exactly as to why he was brought into the hospital, other than that his daughter had brought him in for some lab work. Upon review of the chart it appears patient had been having worsening shortness of breath and fatigue over the past few weeks and more recently some darker stools. Patient was able to recall tat the last time he had dark stools was 2 days ago. He denies any history of bright red blood or bloody stools. Denies any current chest pain, chest pressure, SOB, fever, chills, abdominal pain, nausea, vomiting. Med Hx: Cerebral vascular disease, BPH, HLD, GERD Surg Hx: L hip and knee replacement Soc: Does note use tobacco, alcohol, or illicit drugs Allergies Allergy/AdvReac Type Severity Reaction Status Date / Time Sulfa (Sulfonamide Allergy Mild Rash Verified 05/06/20 15:56 Antibiotics) Home Medications Medication Instructions Recorded Confirmed Type aspirin 81 mg tablet,delayed 81 mg PO DAILY 01/01/19 05/06/20 History release zdvitcul-jpl-mmczy acid 0.4 1 tab PO DAILY 01/01/19 05/06/20 History mg-lycopene 300 mcg-lutein 250 mcg tablet clopidogrel 75 mg tablet 75 mg PO DAILY #90 tab 10/20/19 05/06/20 Rx omeprazole 20 mg capsule,delayed 20 mg PO DAILY #90 cap 10/20/19 05/06/20 Rx release simvastatin 20 mg tablet 20 mg PO QPM #90 tab 10/20/19 05/06/20 Rx Past Med/Surg History Medical History (Updated 05/06/20 @ 15:22 by Tobias Petersen MD) Bleeding from the urethra Cat bite 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) Diverticulosis of colon (03/08/11) Head injury Need for immunization against rabies Surgical History History of hernia repair History of left knee replacement Family History Sister Breast cancer Mother Diabetes Denies family history of Ovarian cancer Prostate cancer Myocardial infarction Colorectal cancer Social History Smoking Status: Former smoker Tobacco Type: Pipe Age Started Using Tobacco: 21; Age Quit Using Tobacco: 41; Hx Alcohol Use: No Hx Substance Use: No Preferred Language: Vietnamese Communication Ability: Effective Visual Impairment: No Limitations Hearing Ability: Normal 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 Beliefs That Will Affect Care: None marital status: / Current Living Situation: Alone Current Living Situation Comment: Patient states lives alone, family stops by current occupational status: retired Other Information That Helps Us Care for You: No Feels Safe at Home: Yes Childhood Exposure to Second-Hand Smoke: No Dental Care, Regularly: No Physical Activity Frequency: Does not Exercise Seatbelt Use: always Sunscreen Use: No Do you think of yourself as: straight/heterosexual Assistive Devices: None Review of Systems Review of Systems: All systems reviewed & are unremarkable except as noted in Subjective Physical Exam Constitutional: well developed, well nourished and cooperative; no acute distress Eyes: PERRL, conjunctivae normal, anicteric sclerae ENMT: external ear and nose normal, oropharynx normal Neck: trachea midline, no thyromegaly Respiratory: normal respiratory effort, lungs clear to auscultation Cardiovascular: Rate/Rhythm: regular rate and regular rhythm Heart Sounds: no murmur Vessels: no JVD Extremities: no edema Gastrointestinal (Abdomen): normal bowel sounds, soft, nontender, no hepatosplenomegaly Skin: no rashes, warm and dry Psychiatric: Orientation: alert, oriented x 3 and cooperative Results & Data Results & Data ([facility]) Vital Signs (Past 12 Hours) Vital Signs Temp Pulse Pulse Pulse Resp Resp BP 05/06/20 21:21 20 05/06/20 21:20 64 14 109/62 05/06/20 21:17 70 19 05/06/20 21:10 58 L 22 05/06/20 21:00 58 L 15 05/06/20 20:50 58 L 18 05/06/20 20:40 68 12 05/06/20 20:30 64 18 05/06/20 20:20 58 L 23 05/06/20 20:10 58 L 25 H 05/06/20 20:00 57 L 25 H 05/06/20 19:50 57 L 17 05/06/20 19:40 58 L 18 05/06/20 19:30 61 20 05/06/20 19:20 59 L 22 05/06/20 19:10 63 18 05/06/20 19:00 58 L 21 05/06/20 18:51 78 21 05/06/20 18:50 63 22 05/06/20 18:40 61 19 05/06/20 18:30 64 16 05/06/20 18:20 64 20 05/06/20 18:18 79 24 05/06/20 18:01 64 24 05/06/20 18:00 64 22 114/72 05/06/20 17:50 64 21 05/06/20 17:40 63 16 05/06/20 17:31 70 22 05/06/20 17:30 72 21 122/96 05/06/20 17:20 62 20 05/06/20 17:10 62 19 05/06/20 17:01 62 15 05/06/20 17:00 62 19 122/70 05/06/20 16:50 61 21 05/06/20 16:40 62 19 05/06/20 16:31 64 19 05/06/20 16:30 61 20 129/60 05/06/20 16:20 60 17 05/06/20 16:10 61 19 05/06/20 16:01 61 21 109/68 05/06/20 16:00 63 21 05/06/20 15:50 62 20 05/06/20 15:48 62 21 05/06/20 15:30 05/06/20 14:54 36.2 C L 80 20 114/81 BP Pulse Ox Pulse Ox 05/06/20 21:21 05/06/20 21:20 05/06/20 21:17 109/62 98 05/06/20 21:10 05/06/20 21:00 05/06/20 20:50 05/06/20 20:40 05/06/20 20:30 05/06/20 20:20 05/06/20 20:10 05/06/20 20:00 05/06/20 19:50 05/06/20 19:40 05/06/20 19:30 05/06/20 19:20 05/06/20 19:10 05/06/20 19:00 05/06/20 18:51 94 05/06/20 18:50 05/06/20 18:40 96 05/06/20 18:30 96 05/06/20 18:20 05/06/20 18:18 05/06/20 18:01 05/06/20 18:00 05/06/20 17:50 05/06/20 17:40 05/06/20 17:31 05/06/20 17:30 05/06/20 17:20 98 05/06/20 17:10 05/06/20 17:01 05/06/20 17:00 05/06/20 16:50 05/06/20 16:40 05/06/20 16:31 05/06/20 16:30 05/06/20 16:20 05/06/20 16:10 05/06/20 16:01 05/06/20 16:00 05/06/20 15:50 05/06/20 15:48 05/06/20 15:30 96 05/06/20 14:54 98 Supervising Physician Co-Signing Physician Notes Attending addendum: I have physically seen this patient, have supervised the medical residents activities, and agree with the H&P unless as otherwise noted. Assessment and Plan: Shortness of breath- Noted by family, but not noted by patient. Clinical examination and investigations normal at this time. We will observe overnight. Acute kidney injury- Creatinine 1.55 upon admission, with baseline 1.00-1.13 No further IV fluids after being given 1 L in the ED. Recheck labs in a.m. . BPH with LUTS- Continue self-catheterization Hyperlipidemia- Continue simvastatin GERD- Change omeprazole to pantoprazole per formulary Remainder of orders and notations as noted Resident Activity Tracking Resident Involvement: Resident Care Provided Care Provided: Adult Hospital Medicine
[2020-05-07 07:56] LABS: Basophils # (auto) 0.01 K/uL (0-0.2); Basophils % (auto) 0.2 %; Eosinophils # (auto) 0.17 K/uL (0-0.5); Eosinophils % (auto) 2.6 %; Hemoglobin 12.8 g/dL (14.0-18.0); Immature Granulocytes # (auto) 0.02 K/uL (0.00-0.02); Immature Granulocytes % (auto) 0.3 %; Lymphocytes # (auto) 1.23 K/uL (1.2-3.4); Mean Corpuscular Hemoglobin 30.3 pg (25-34); Mean Corpuscular Hgb Conc 34.6 g/dL (32-36); Mean Corpuscular Volume 87.5 fL (80-100); Mean Platelet Volume 10.3 fL (7.4-10.4); Monocytes # (auto) 1.01 K/uL (0.11-0.59); Monocytes % (auto) 15.6 %; Neutrophils # (auto) 4.05 K/uL (1.4-6.5); Neutrophils % (auto) 62.3 %; Platelet Count 247 K/uL (130-400); RDW Coefficient of Variation 13.8 % (11.5-14.5); RDW Standard Deviation 43.9 fL (36.4-46.3); Red Blood Count 4.23 M/uL (4.7-6.1); White Blood Count 6.49 K/uL (4.8-10.8)
[2020-05-07 08:36] LABS: BUN Creatinine Ratio 27.7 (10-20); Calcium 8.8 mg/dl (8.5-10.1); Creatinine Clr Calc Pharmacy 44.2 ml/min; Est GFR (African American) 70.6; Potassium 4.2 mmol/L (3.5-5.1)
[2020-05-07] MEDS: CLOPIDOGREL BISULFATE 75 MG TAB PO SCH (09:06)
[2020-05-07] MEDS: ASPIRIN 81 MG ECTAB PO SCH (09:06)
[2020-05-07] MEDS: PANTOprazole 40 MG TAB PO SCH (09:06)
--- NOTE | 2020-05-07 11:01 | Electrocardiogram Report ---
Test Reason : Blood Pressure : / mmHG Vent. Rate : 069 BPM Atrial Rate : 069 BPM P-R Int : 160 ms QRS Dur : 070 ms QT Int : 386 ms P-R-T Axes : -15 -11 017 degrees QTc Int : 413 ms Poor data quality, interpretation may be adversely affected Normal sinus rhythm Normal ECG When compared with ECG of 05-OCT-2014 14:04, [place] interval has decreased Vent. rate has increased BY 26 BPM Confirmed by Aleksander Hester ([id number]) on 05/07/2020 11:00:50 AM Referred By: REFERRED SELF Confirmed By:Jared Hester
--- NOTE | 2020-05-07 20:00 | Billing Data ---
Date of Service May 07, 2020 Coding Level of Care Code 87288 OBS Care - Level 3
[2020-05-07] MEDS: SIMVASTATIN 20 MG TAB PO SCH (20:45)
--- NOTE | 2020-05-07 23:01 | Hospitalist Progress Note ---
Date of Service May 07, 2020 Assessment & Plan (1) SOB (shortness of breath): (1) SOB (shortness of breath): Patient is a very pleasant 89 year old male with PMHx cerebral vascular disease with mild neurocognitive disorder, BPH, hyperlipidemia who was noted to have worsening SOB and fatigue over the past several weeks and dark stools concerning for GI bleed. He had discussed these concerns with his PCP earlier in the day who had recommended the patient be evaluated in the ED for above concerns. Shortness of Breath -In ED was given 20mg IV Lasix -Though BNP elevated, patients clinical exam appears relatively euvolemic at time of evaluation -Lungs CTA b/l, no LE Edema, no JVD - low suspicion at this time for heart failure -Patient remains euvolemic on today's exam on 05/07/20 -Strict I/O RANDY -Creatinine mildly elevated on admission 1.55 -Creatinine is improved. -Likely pre-renal -Received IVF in ED -Encourage Po intake BPH w/ obstruction -Patient notes he has been self-cathing himself for "over 9 years now" -currently has ness. will remove tomorrow. Concern for GI Bleed -Hemoccult in ED negative -Hgb 13.9 -Vitals stable Hx Cerebrovascular Thrombosis -Continue home ASA -Continue home Clopidogrel HLD -Continue home Simvastatin GERD -Continue home Omeprazole Dispo: Med/Surg Telemetry FEN: HH diet DVT: SCD Code: Full (2) Benign prostatic hyperplasia with urinary obstruction: (3) Hearing loss: (4) Hyperglycemia: (5) Hyperlipidemia: (6) Mild neurocognitive disorder: (7) Urinary retention: Admission and Anticipated Discharge Date Admission Date: May 06, 2020 Subjective Patient reports that he is under the impression that he has been in the hospital for 1 week (eventhough he was admitted yesterday). Patient reports no significant issues. Patient does not recall why he is in the hospital. He currently denies any SOB at this time. Review of Systems Review of Systems: All systems reviewed & are unremarkable except as noted in HPI & below Physical Exam Physical Exam: Constitutional: well developed, well nourished and cooperative; no acute distress Eyes: PERRL, conjunctivae normal, anicteric sclerae ENMT: external ear and nose normal, oropharynx normal Neck: trachea midline, no thyromegaly Respiratory: normal respiratory effort, lungs clear to auscultation Cardiovascular: Rate/Rhythm: regular rate and regular rhythm Heart Sounds: no murmur Vessels: no JVD Extremities: no edema Gastrointestinal (Abdomen): normal bowel sounds, soft, nontender, no hepatosplenomegaly Skin: no rashes, warm and dry Psychiatric: Orientation: alert, oriented x [address], cooperative Results & Data Results & Data ([facility]) Vital Signs (Past 12 Hours) Vital Signs Temp Pulse Pulse Resp BP Pulse Ox 05/07/20 19:32 36.5 C 54 L 17 106/65 95 05/07/20 16:01 36.8 C 58 L 18 118/63 95 05/07/20 15:01 53 L 05/07/20 11:09 36.4 C L 54 L 16 105/63 97 PG Care Time/CCT Total # of Minutes Spent Total Time Spent with Patient: Total time spent is greater than 50% in coordination of care (as documented) at patient's floor/unit and/or counseling patient: Coding Level of Care Code 51973 Subseq Obs Care Lvl 3 Diagnoses SOB (shortness of breath) R06.02 Benign prostatic hyperplasia with urinary obstruction N40.1; N13.8 Hearing loss H91.90 Hyperglycemia R73.9 Hyperlipidemia E78.5 Mild neurocognitive disorder G31.84 Urinary retention R33.9 Time Spent (min) 35
[2020-05-08] MEDS: PANTOprazole 40 MG TAB PO SCH (07:55)
[2020-05-08] MEDS: CLOPIDOGREL BISULFATE 75 MG TAB PO SCH (07:55)
[2020-05-08] MEDS: ASPIRIN 81 MG ECTAB PO SCH (07:55)
[2020-05-08 08:44] LABS: Hematocrit (blood only) 39.6 % (42-52); Hemoglobin 13.6 g/dL (14.0-18.0); Mean Corpuscular Hemoglobin 30.2 pg (25-34); Mean Corpuscular Hgb Conc 34.3 g/dL (32-36); Mean Platelet Volume 9.8 fL (7.4-10.4); Platelet Count 268 K/uL (130-400); RDW Coefficient of Variation 13.5 % (11.5-14.5); RDW Standard Deviation 43.3 fL (36.4-46.3); White Blood Count 10.61 K/uL (4.8-10.8)
[2020-05-08 09:49] LABS: BUN Creatinine Ratio 25.6 (10-20); Calcium 8.6 mg/dl (8.5-10.1); Creatinine Clr Calc Pharmacy 52.5 ml/min; Est GFR (African American) 86.9; Ferritin 469.4 ng/ml (8-388); Potassium 3.2 mmol/L (3.5-5.1)
--- NOTE | 2020-05-08 13:05 | XRay Report ---
XR chest 2V PA/lateral CLINICAL HISTORY: Shortness of breath COMPARISON STUDY: May 06, 2020 FINDINGS: The cardiac and mediastinal contours remain stable. There is improvement in the previously described mild interstitial thickening. There is no lobar consolidation. There are no pleural effusio ns.[ IMPRESSION: 1. Interval improvement in the previously described mild interstitial thickening. No evidence of foca l pulmonary consolidation ACT 112: Negative or not required by law. Electronically signed by: Amado Larson M.D. 05/08/2020 1:04 PM
[2020-05-08] MEDS: POTASSIUM CHLORIDE CRTAB 20 MEQ TABCR PO SCH ×2 (13:15→20:35)
--- NOTE | 2020-05-08 17:01 | XCELERA ---
[id number] \\[id number]_[id number]}___[id number]
[2020-05-08] MEDS: SIMVASTATIN 20 MG TAB PO SCH (20:34)
--- NOTE | 2020-05-08 21:51 | Hospitalist Progress Note ---
Date of Service May 08, 2020 Assessment & Plan (1) SOB (shortness of breath): (1) SOB (shortness of breath): Patient is a very pleasant 89 year old male with PMHx cerebral vascular disease with mild neurocognitive disorder, BPH, hyperlipidemia who was noted to have worsening SOB and fatigue over the past several weeks and dark stools concerning for GI bleed. He had discussed these concerns with his PCP earlier in the day who had recommended the patient be evaluated in the ED for above concerns. Shortness of Breath At this point, may be multifactorial: patient has low EF. -Patient was given lasix in ER, but also given fluids. -Though BNP elevated, patients clinical exam appears relatively euvolemic at time of evaluation -Lungs CTA b/l, no LE Edema, no JVD - low suspicion at this time for heart failure -Patient remains euvolemic on today's exam on 05/08/20 -Given he is improving, a possibilty may be that his cretinine may be elevated due to post renal failure from BPH. Unsure how well, patient self caths at home. Patient also is having low normal EF, perhaps SYSTOLIC chf IS ALSO PLAYING A ROLE. GIVEN BRADYCARDIA, AND LOW BP, WILL DEFER NORRIS inhibitor, and beta rupal. will discuss with cardio. -Strict I/O RANDY -Creatinine mildly elevated on admission 1.55 -Creatinine is improved. -Likely pre-renal -Received IVF in ED -Encourage Po intake BPH w/ obstruction -Patient notes he has been self-cathing himself for "over 9 years now" -currently has ness.will keep this in and will discuss with Uroogy. It appears he followed with [facility], but has not seen them for over 2 years. Nurses had difficulty intermittently cathing patient which led to the ness catheter being placed. Concern for GI Bleed -Hemoccult in ED negative -Hgb 13.9 -Vitals stable Hx Cerebrovascular Thrombosis -Continue home ASA -Continue home Clopidogrel HLD -Continue home Simvastatin GERD -Continue home Omeprazole Dispo: Med/Surg Telemetry FEN: HH diet DVT: SCD Code: Full (2) Benign prostatic hyperplasia with urinary obstruction: (3) Hearing loss: (4) Hyperglycemia: (5) Hyperlipidemia: (6) Mild neurocognitive disorder: (7) Urinary retention: Admission and Anticipated Discharge Date Admission Date: May 06, 2020 Subjective 89 yo male reports having no significant complaints today. He reports walking around the halls without feeling SOB. However, had discussion with daughter Madeleine on the phone, they report he was short of breath while talking to them on the phone. They state that patient normally lives by himself and is very active. Review of Systems Review of Systems: All systems reviewed & are unremarkable except as noted in HPI & below Physical Exam Physical Exam: Constitutional: well developed, well nourished and cooperative; no acute distress Eyes: PERRL, conjunctivae normal, anicteric sclerae ENMT: external ear and nose normal, oropharynx normal Neck: trachea midline, no thyromegaly Respiratory: normal respiratory effort, lungs clear to auscultation Cardiovascular: Rate/Rhythm: regular rate and regular rhythm Heart Sounds: no murmur Vessels: no JVD Extremities: no edema Gastrointestinal (Abdomen): normal bowel sounds, soft, nontender, no hepatosplenomegaly Skin: no rashes, warm and dry Psychiatric: Orientation: alert, oriented x [address], cooperative Results & Data Results & Data ([facility]) Vital Signs (Past 12 Hours) Vital Signs Temp Pulse Pulse Resp BP Pulse Ox 05/08/20 20:09 36.6 C 57 L 17 94/52 L 97 05/08/20 16:47 52 L 05/08/20 15:32 36.4 C L 53 L 17 111/63 99 05/08/20 11:13 36.8 C 52 L 16 104/66 99 PG Care Time/CCT Total # of Minutes Spent Total Time Spent with Patient: Total time spent is greater than 50% in coordination of care (as documented) at patient's floor/unit and/or counseling patient: Coding Level of Care Code 32084 Subseq Hosp Care Lvl 3 Diagnoses SOB (shortness of breath) R06.02 Benign prostatic hyperplasia with urinary obstruction N40.1; N13.8 Hearing loss H91.90 Hyperglycemia R73.9 Hyperlipidemia E78.5 Mild neurocognitive disorder G31.84 Urinary retention R33.9 Time Spent (min) 35
[2020-05-08] MEDS ORDERED: HEPARIN SOD 5,000 UNIT/0.5 ML VIAL SQ STA (22:07)
[2020-05-09] MEDS: HEPARIN SOD 5,000 UNIT/0.5 ML VIAL SQ SCH ×2 (05:41→12:30)
[2020-05-09 07:57] VITALS: TEMP 97.3
[2020-05-09] MEDS: PANTOprazole 40 MG TAB PO SCH (08:00)
[2020-05-09] MEDS: CLOPIDOGREL BISULFATE 75 MG TAB PO SCH (08:00)
[2020-05-09] MEDS: ASPIRIN 81 MG ECTAB PO SCH (08:00)
[2020-05-09] MEDS: POTASSIUM CHLORIDE CRTAB 20 MEQ TABCR PO SCH (08:00)
[2020-05-09 11:24] VITALS: BP 118/69; O2SAT 100
[2020-05-09] MEDS ORDERED: FUROSEMIDE 20 MG TAB PO SCH (12:30)
[2020-05-09 13:25] VITALS: PULSE 70
--- NOTE | 2020-05-15 21:32 | Discharge Summary ---
Date of Service May 09, 2020 Admission HPI Per Admitting Provider Patient is a very pleasant 89 year old male with PMHx cerebral vascular disease with mild neurocognitive disorder, BPH, hyperlipidemia who was noted to have worsening SOB and fatigue over the past several weeks and dark stools concerning for GI bleed. He had discussed these concerns with his PCP earlier in the day who had recommended the patient be evaluated in the ED for above concerns. At time of evaluation patient notes that over all he is feeling well and he's unsure exactly as to why he was brought into the hospital, other than that his daughter had brought him in for some lab work. Upon review of the chart it appears patient had been having worsening shortness of breath and fatigue over the past few weeks and more recently some darker stools. Patient was able to recall tat the last time he had dark stools was 2 days ago. He denies any history of bright red blood or bloody stools. Denies any current chest pain, chest pressure, SOB, fever, chills, abdominal pain, nausea, vomiting. Med Hx: Cerebral vascular disease, BPH, HLD, GERD Surg Hx: L hip and knee replacement Soc: Does note use tobacco, alcohol, or illicit drugs Principal Diagnosis SOB Discharge Exam Constitutional: well developed, well nourished and cooperative; no acute distress Eyes: PERRL, conjunctivae normal, anicteric sclerae ENMT: external ear and nose normal, oropharynx normal Neck: trachea midline, no thyromegaly Respiratory: normal respiratory effort, lungs clear to auscultation Cardiovascular: Rate/Rhythm: regular rate and regular rhythm Heart Sounds: no murmur Vessels: no JVD Extremities: no edema Gastrointestinal (Abdomen): normal bowel sounds, soft, nontender, no hepatosplenomegaly Skin: no rashes, warm and dry Psychiatric: Orientation: alert, oriented x [address], cooperative Discharge Data Allergies Allergy/AdvReac Type Severity Reaction Status Date / Time Sulfa (Sulfonamide Allergy Mild Rash Verified 05/11/20 09:24 Antibiotics) Consultations 05/06/20 21:07 ED Decision to Admit Stat Hospital Course (1) SOB (shortness of breath): (1) SOB (shortness of breath): Patient is a very pleasant 89 year old male with PMHx cerebral vascular disease with mild neurocognitive disorder, BPH, hyperlipidemia who was noted to have worsening SOB and fatigue over the past several weeks and dark stools concerning for GI bleed. He had discussed these concerns with his PCP earlier in the day who had recommended the patient be evaluated in the ED for above concerns. Shortness of Breath At this point, may be multifactorial: patient has low EF. Likely Systolic heart failure -Patient was given lasix in ER, but also given fluids. -Though BNP elevated, patients clinical exam appears relatively euvolemic at time of evaluation -Lungs CTA b/l, no LE Edema, no JVD - low suspicion at this time for heart failure -Patient remains euvolemic on today's exam on 04/29/20 -Given how he is improving, a possibility may be that his creatinine may be elevated due to post renal failure from BPH. Unsure how well, patient self caths at home. Given low EF, patient will benefit from low dose furosemide GIVEN BRADYCARDIA, AND LOW BP, WILL DEFER NORRIS inhibitor, and beta rupal. -Strict I/O RANDY -Creatinine mildly elevated on admission 1.55 -Creatinine is improved. -Likely pre-renal -Received IVF in ED -Encourage Po intake BPH w/ obstruction -Patient notes he has been self-cathing himself for "over 9 years now" -currently has ness.will keep this in and will discuss with Uroogy. It appears he followed with [facility], but has not seen them for over 2 years. Nurses had difficulty intermittently cathing patient which led to the ness catheter being placed. will have patient follow up with Urology as an outpatient. 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: (3) Hearing loss: (4) Hyperglycemia: (5) Hyperlipidemia: (6) Mild neurocognitive disorder: (7) Urinary retention: Total Time Total Time Spent Total Time Spent (In Minutes): 32 Total Time Includes: Examination of the Patient, Discharge Planning and Medication Reconciliation Discharge Plan Discharge Items Patient Disposition: Home - Self-Care Reason For Visit: SHORTNESS OF BREATH Discharge Diagnosis: Shortness of breath Activity: Resume your previous activity Non-emergency contact: Primary Care Provider Call non-emergency contact if: you have any medication questions Follow-up/Referrals: Parminder Henning MD [Physician] - (Dr. Henning's office will call you with an appointment.) Iván Sanz III, CRNP [Primary Care Provider] - 05/11/20 9:20 am Jay Hester MD [Physician] - 06/01/20 9:30 am (Office may call with an earlier date if available.) Diet: Heart Healthy Addtl Attending Provider Instructions: Call 911 and go to the Emergency Room if: * You have tightness or pain in your chest that does not go away with rest or Nitroglycerin * You are very short of breath even with rest Call your doctor if any of the following symptoms or problems start or get worse: * Shortness of breath or difficulty breathing * Wake up at night short of breath * Chest pain * Cough * Swelling of your hands, fee, or legs * More fatigued or tired with your normal activity * Palpitations - sudden fast heart beats WEIGHT * Weigh yourself every morning after using the bathroom. * Use the same scale. * Wear the same amount of clothing. * Write your weight down on your chart. * Call your doctor if you gain more than 2-3 pounds in 1-2 days. MEDICATIONS * Use this discharge instruction sheet for instructions. * Take your medications at the time your doctor ordered. * Do not skip a dose of your medicines. * If you miss a dose of medicine, take as soon as possible, but DO NOT DOUBLE A DOSE. * Read your medicine information when you get home. * Know all of the side effects of your medicine. * Call your doctor's office if you have any side effects. * Be sure all of your doctors know what medicine and herbs you take (including cold, flu, and herbal medicine). * Pain Medicine: If you do not get relief from your pain, please call your doctor for help. Take the following with you to your follow-up doctor appointments: * Weight Chart * Medication List * List of questions Do not drink excessive alcohol, beer or wine. Followup with Cardio this week. Planning to followup with Urology next week Pending Studies at Discharge: No Stand-Alone Forms: My [address], Smoking Cessation Medications and DC Order Prescriptions: New furosemide 20 mg Tablet 20 mg PO QAM Qty: 30 RF: 0 potassium chloride 10 mEq tablet extended release 10 meq PO DAILY Qty: 30 RF: 0 Continued clopidogrel 75 mg tablet 75 mg PO DAILY Qty: 90 RF: 3 omeprazole 20 mg capsule,delayed release(DR/EC) 20 mg PO DAILY Qty: 90 RF: 3 simvastatin 20 mg tablet 20 mg PO QPM Qty: 90 RF: 3 Centrum Silver 0.4-300-250 mg-mcg-mcg tablet 1 tab PO DAILY RF: 0 aspirin 81 mg tablet,delayed release (DR/EC) 81 mg PO DAILY RF: 0 Discharge Orders: Discharge Order (Routine); Ordered 05/09/20 Ordered By: Sukh Tate Admission Data Admit Date/Time: 05/06/20 22:04 Attending Provider: Sukh Tate Admit Provider: Josh Montalvo Primary Care Provider: Iván Sanz III Other Providers: Oswald Bee Other Interventions: Discharge Summary Assessment (RN) Last Done: 05/09/20 13:24 Coding Level of Care Code D/C Day Management >30 mins Diagnoses SOB (shortness of breath) R06.02 Benign prostatic hyperplasia with urinary obstruction N40.1; N13.8 Hearing loss H91.90 Hyperglycemia R73.9 Hyperlipidemia E78.5 Mild neurocognitive disorder G31.84 Urinary retention R33.9
== END 2020-05-09 13:55 | disposition home or self-care (01) ==
LOC: ED 14:51 → 2N 14:51 → SUATTDRO 22:04 → 2N 23:04

== ENCOUNTER 2021-09-14 07:56 | Inpatient (IN) ==
[2021-09-14] MEDS ORDERED: PANTOPRAZOLE BOLUS/DRIP 1 EA IV STA (08:07)
[2021-09-14] MEDS ORDERED: SODIUM CHLORIDE 0.9% 250 ML IV PRN ×2 (08:07→08:37)
[2021-09-14] MEDS ORDERED: PANTOprazole 80 MG in DEXTROSE 5% 100 ML IV ONE (08:07)
--- NOTE | 2021-09-14 08:13 | Emergency Department Note ---
Impression & Plan Acute GI bleeding, Symptomatic anemia, Elevated BUN ED Provider Note NAME: LISA WHEATLEY JR AGE: 89 SEX: M : 1930 ARRIVES VIA: Ambulance INFORMANT: Patient ED PROVIDER(S): Femi Hamlin DO CHIEF COMPLAINT: abdominal pain HPI: Patient is an 89-year-old male who presents to the ER from [facility] for blood in his stool. He notes this been going on for 2 weeks. Its been getting darker and mckay. He does have some brown blood as well. He de nies any headache or change in vision. At the [facility] blood pressure was in the 80s. He was dizzy at that time. He is also taking aspirin. Denies any belly pain. No dysuria, urgency, or frequency. No other exacerbating or remitting factors. ROS: See above HPI for pertinent positives & negatives. A total of 10 systems reviewed and were otherwise negative. PAST MEDICAL HISTORY:See Below PAST SURGICAL HISTORY:See Below FAMILY HISTORY:See Below SOCIAL HISTORY:See Below HOME MEDICATIONS:See Below ALLERGIES:See Below VITALS:See Below PHYSICAL EXAMINATION: GENERAL: Sitting up in bed, alert, chronically ill-appearing, disheveled EYE EXAM: normal conjunctiva. OROPHARYNX: no exudate, no erythema, lips, buccal mucosa, and tongue normal and mucous membranes are moist NECK: supple, no nuchal rigidity, no adenopathy, non-tender LUNGS: Clear to auscultation. Normal chest wall mechanics HEART: no murmurs, S1 normal and S2 normal ABDOMEN: abdomen soft, non-tender, normo-active bowel sounds, no masses, no rebound or guarding. Heme positive dark dark melanotic blood UPPER EXTREMITIES: upper extremities are grossly normal. LOWER EXTREMITIES: No pitting edema. NEURO EXAM: Normal sensorium, cranial nerves II-XII grossly intact, normal speech, no gross weakness of arms, no gross weakness of legs. MEDICAL DECISION MAKING: Patient is an 89-year-old male who presents the ER for dark blood per rectum. IV was established with orders obtained. Labs show anemia of 6.6. INR was unremarkable. BMP along with LFTs bilirubin was unremarkable. Troponin was negative. Rectal was dark maroon blood. Patient was typed and crossed and given 2 units of PRBCs while in the ER. Consulted hospitalist for further evaluation. CT abdomen pelvis showed no acute findings. Obtain consent from daughter. Triage Nursing notes reviewed. Limited review of prior medical records performed Vital Signs: reviewed and remarkable for no significant abnormalities Differential diagnosis: Differential diagnosis includes etiologies such as diverticulitis, diverticulosis, AVM, coagulopathy, colitis, inflammatory bowel disease, m alignancy, Kandi-Rendon tear, esophagitis, peptic ulcer disease, variceal bleed, gastritis, epistaxis, fissure, hemorrhoids, as well as others were entertained. ER treatment provided: See below Diagnostics interpreted by me: ECG: Sinus rhythm rate of 60 Normal axis No PVCs QTC 424 Cardiac Monitoring: An order was placed for continuous cardiac monitoring. The monitor shows a rate of 70 with sinus rhythm. Laboratory studies: As stated above and show below. Imaging studies: CT abdomen pelvis is negative Consultation(s): Discussed with Sukh Tate for further evaluation Procedures: none Critical Care: I have personally spent 43 minutes of critical care time in the direct management of this patient. This includes bedside care, interpretation of diagnostic studies, and testing, discussion with consultants, patient, and family members, and other required patient management activities. This 43 minutes is in excess of all separately billable procedures. 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) CHF (congestive heart failure) Diverticulosis of colon (03/08/11) Head injury Kidney stone Need for immunization against rabies Osteoarthritis of hip Surgical History History of hernia repair History of left knee replacement Family History Sister Breast cancer Mother Diabetes Denies family history of Ovarian cancer Prostate cancer Myocardial infarction Colorectal cancer Social History Smoking Status: Former smoker Tobacco Type: Pipe Age Started Using Tobacco: 21; Age Quit Using Tobacco: 41; Second Hand Exposure: No; Hx Alcohol Use: No Hx Substance Use: No Preferred Language: Bulgarian Communication Ability: Effective Visual Impairment: No Limitations Hearing Ability: Normal Fireproof Door Maker Required: No Beliefs That Will Affect Care: None marital status: / Current Living Situation: Rehab Current Living Situation Comment: Patient states lives alone, family stops by current occupational status: retired Feels Safe at Home: Yes Childhood Exposure to Second-Hand Smoke: No Dental Care, Regularly: No Physical Activity Frequency: 5-6 Times per Week Seatbelt Use: always Sunscreen Use: No Do you think of yourself as: straight/heterosexual Assistive Devices: None Allergies Allergies Allergy/AdvReac Type Severity Reaction Status Date / Time Sulfa (Sulfonamide Allergy Mild Rash Verified 09/14/21 08:43 Antibiotics) Home Meds Home Medications Medication Instructions Recorded Confirmed aspirin 81 mg tablet,delayed 81 mg PO QAM 01/01/19 09/14/21 release acetaminophen 500 mg tablet 500 mg PO Q8H PRN 09/14/21 09/14/21 clopidogrel 75 mg tablet 75 mg PO QAM 09/14/21 09/14/21 lidocaine 5 % topical patch 1 patch TOPICAL [facility] 09/14/21 09/14/21 (Lidoderm) nystatin 100,000 unit/gram topical 1 applic TOPICAL QS 09/14/21 09/14/21 powder omeprazole 20 mg capsule,delayed 20 mg PO QAM 09/14/21 09/14/21 release sennosides 8.6 mg-docusate sodium 2 tab-cap PO BID 09/14/21 09/14/21 50 mg tablet simvastatin 20 mg tablet 20 mg PO HS 09/14/21 09/14/21 Previous Rx's Medication Instructions Recorded catheter 16 Fr #60 ea 02/09/21 Results & Data (ED) Vital Signs Vital Signs - 24 hr 09/14/21 07:45 09/14/21 08:15 09/14/21 08:30 Temperature 36.5 C Temperature Source Temporal Artery Scan Pulse Rate 66 65 63 Pulse Rate from SpO2 Sensor 63 Pulse Rhythm Regular Pulse Strength Normal Respiratory Rate 16 23 20 Respiratory Effort / Characteristics Non-Labored Respiratory Depth Normal Blood Pressure 116/64 109/71 Blood Pressure Mean 81 83 Blood Pressure Position Pulse Oximetry 100 99 99 Oxygen Delivery Method Room Air Sepsis Recent Fever Within 48 Hours No Sepsis New/Unexplained Change in Mental Status No Sepsis Action Taken by Nursing No Action Required 09/14/21 09:00 09/14/21 09:30 09/14/21 09:38 Temperature Temperature Source Pulse Rate 60 61 60 Pulse Rate from SpO2 Sensor 60 60 60 Pulse Rhythm Pulse Strength Respiratory Rate 18 20 17 Respiratory Effort / Characteristics Respiratory Depth Blood Pressure 107/51 L 108/55 L Blood Pressure Mean 69 72 Blood Pressure Position Pulse Oximetry 98 97 100 Oxygen Delivery Method Sepsis Recent Fever Within 48 Hours Sepsis New/Unexplained Change in Mental Status Sepsis Action Taken by Nursing 09/14/21 10:00 09/14/21 10:42 09/14/21 11:01 Temperature 36.6 C 36.5 C Temperature Source Oral Oral Pulse Rate 58 L 59 L 63 Pulse Rate from SpO2 Sensor 57 L Pulse Rhythm Regular Pulse Strength Normal Respiratory Rate 20 16 16 Respiratory Effort / Characteristics Respiratory Depth Blood Pressure 110/64 110/64 99/70 L Blood Pressure Mean 79 79 79 Blood Pressure Position Sitting Pulse Oximetry 100 98 98 Oxygen Delivery Method Sepsis Recent Fever Within 48 Hours Sepsis New/Unexplained Change in Mental Status Sepsis Action Taken by Nursing 09/14/21 11:16 09/14/21 11:46 09/14/21 12:18 Temperature Temperature Source Pulse Rate 58 L 66 66 Pulse Rate from SpO2 Sensor Pulse Rhythm Pulse Strength Respiratory Rate 16 18 20 Respiratory Effort / Characteristics Respiratory Depth Blood Pressure 116/50 L 109/54 L 118/48 L Blood Pressure Mean 72 72 71 Blood Pressure Position Pulse Oximetry 98 98 98 Oxygen Delivery Method Sepsis Recent Fever Within 48 Hours Sepsis New/Unexplained Change in Mental Status Sepsis Action Taken by Nursing 09/14/21 12:27 09/14/21 12:42 09/14/21 12:57 Temperature 36.5 C 36.5 C Temperature Source Oral Oral Pulse Rate 58 L 60 60 Pulse Rate from SpO2 Sensor Pulse Rhythm Pulse Strength Respiratory Rate 20 16 16 Respiratory Effort / Characteristics Respiratory Depth Blood Pressure 118/48 L 110/52 L 112/60 Blood Pressure Mean 71 71 77 Blood Pressure Position Pulse Oximetry 98 98 98 Oxygen Delivery Method Sepsis Recent Fever Within 48 Hours Sepsis New/Unexplained Change in Mental Status Sepsis Action Taken by Nursing 09/14/21 13:12 Temperature Temperature Source Pulse Rate 60 Pulse Rate from SpO2 Sensor Pulse Rhythm Pulse Strength Respiratory Rate 16 Respiratory Effort / Characteristics Respiratory Depth Blood Pressure 103/56 L Blood Pressure Mean 71 Blood Pressure Position Pulse Oximetry 98 Oxygen Delivery Method Sepsis Recent Fever Within 48 Hours Sepsis New/Unexplained Change in Mental Status Sepsis Action Taken by Nursing Laboratory Data Result diagrams: 09/14/21 08:12 09/14/21 08:12 Lab Results 09/14/21 09/14/21 09/14/21 Range/Units 08:07 08:12 08:12 WBC 10.54 (4.8-10.8) K/uL RBC 2.12 L (4.7-6.1) M/uL Hgb 6.6 L* (14.0-18.0) g/dL POC Hgb (14.0-18.0) g/dl Hct 19.7 L* (42-52) % POC Hct (42-52) % MCV 92.9 (80-100) fL MCH 31.1 (25-34) pg MCHC 33.5 (32-36) g/dL RDW Std Deviation 50.7 H (36.4-46.3) fL RDW Coeff of Lukas 15.3 H (11.5-14.5) % Plt Count 309 (130-400) K/uL MPV 9.2 (7.4-10.4) fL Immature Gran % (Auto) 0.5 % Neut % (Auto) 77.0 % Lymph % (Auto) 14.2 % [place] % (Auto) 6.8 % Eos % (Auto) 1.1 % Baso % (Auto) 0.4 % Neut # (Auto) 8.11 H (1.4-6.5) K/uL Lymph # (Auto) 1.50 (1.2-3.4) K/uL [place] # (Auto) 0.72 H (0.11-0.59) K/uL Eos # (Auto) 0.12 (0-0.5) K/uL Baso # (Auto) 0.04 (0-0.2) K/uL Immature Gran # (Auto) 0.05 H (0.00-0.02) K/uL Polychromasia 1+ Anisocytosis Present PT (9.0-12.0) Seconds INR (0.9-1.1) APTT (21.0-31.0) Seconds PTT Ratio POC Sodium (135-144) mmol/L Sodium (136-145) mmol/L POC Potassium (3.3-5.0) mmol/L Potassium (3.5-5.1) mmol/L POC Chloride (101-112) mmol/L Chloride (98-107) mmol/L Carbon Dioxide (21-32) mmol/L POC Total CO2 (24-31) mmol/L Anion Gap (3-11) POC Anion Gap (16-25) mmol/L POC BUN (7-18) mg/dl BUN (6-23) mg/dl Creatinine (0.6-1.4) mg/dl POC Creatinine (0.6-1.3) mg/dl Est Cr Clr Drug Dosing ml/min Est GFR ( Amer) ml/min Est GFR (Non-Af Amer) ml/min BUN/Creatinine Ratio (10-20) Glucose (70-99(Fasting)) mg/dl POC Glucose (other) (70-99) mg/dl Calcium (8.5-10.1) mg/dl POC Ioniz Calcium Aidan (1.12-1.32) mmol/l Total Bilirubin (0.2-1.0) mg/dl AST (13-39) U/L ALT (7-52) U/L Alkaline Phosphatase (34-104) U/L Troponin I High Sens (0-20) pg/ml Total Protein (6.0-8.3) gm/dl Albumin (3.4-5.0) gm/dl Globulin (2.5-4.0) gm/dl Albumin/Globulin Ratio (0.9-2) POC Stool Occult Blood Negative (Negative) SARS-CoV-2, RNA, NAAT (NEGATIVE) Blood Type A Positive Antibody Screen NEGATIVE Crossmatch See Detail 09/14/21 09/14/21 09/14/21 Range/Units 08:12 08:12 08:26 WBC (4.8-10.8) K/uL RBC (4.7-6.1) M/uL Hgb (14.0-18.0) g/dL POC Hgb 6.1 L* (14.0-18.0) g/dl Hct (42-52) % POC Hct 18 L* (42-52) % MCV (80-100) fL MCH (25-34) pg MCHC (32-36) g/dL RDW Std Deviation (36.4-46.3) fL RDW Coeff of Lukas (11.5-14.5) % Plt Count (130-400) K/uL MPV (7.4-10.4) fL Immature Gran % (Auto) % Neut % (Auto) % Lymph % (Auto) % [place] % (Auto) % Eos % (Auto) % Baso % (Auto) % Neut # (Auto) (1.4-6.5) K/uL Lymph # (Auto) (1.2-3.4) K/uL [place] # (Auto) (0.11-0.59) K/uL Eos # (Auto) (0-0.5) K/uL Baso # (Auto) (0-0.2) K/uL Immature Gran # (Auto) (0.00-0.02) K/uL Polychromasia Anisocytosis PT 11.4 (9.0-12.0) Seconds INR 1.1 (0.9-1.1) APTT 22.5 (21.0-31.0) Seconds PTT Ratio 0.8 POC Sodium 137 (135-144) mmol/L Sodium 136 (136-145) mmol/L POC Potassium 4.3 (3.3-5.0) mmol/L Potassium 4.3 (3.5-5.1) mmol/L POC Chloride 101 (101-112) mmol/L Chloride 104 (98-107) mmol/L Carbon Dioxide 24 (21-32) mmol/L POC Total CO2 23 L (24-31) mmol/L Anion Gap 8 (3-11) POC Anion Gap 18.0 (16-25) mmol/L POC BUN 36 H (7-18) mg/dl BUN 39 H (6-23) mg/dl Creatinine 0.92 (0.6-1.4) mg/dl POC Creatinine 1.0 (0.6-1.3) mg/dl Est Cr Clr Drug Dosing 55.7 ml/min Est GFR ( Amer) 85.2 ml/min Est GFR (Non-Af Amer) 73.5 ml/min BUN/Creatinine Ratio 42.4 H (10-20) Glucose 103 H (70-99(Fasting)) mg/dl POC Glucose (other) 106 H (70-99) mg/dl Calcium 8.5 (8.5-10.1) mg/dl POC Ioniz Calcium Aidan 1.13 (1.12-1.32) mmol/l Total Bilirubin 0.3 (0.2-1.0) mg/dl AST 17 (13-39) U/L ALT 9 (7-52) U/L Alkaline Phosphatase 84 (34-104) U/L Troponin I High Sens 6.4 (0-20) pg/ml Total Protein 5.7 L (6.0-8.3) gm/dl Albumin 3.3 L (3.4-5.0) gm/dl Globulin 2.4 L (2.5-4.0) gm/dl Albumin/Globulin Ratio 1.4 (0.9-2) POC Stool Occult Blood (Negative) SARS-CoV-2, RNA, NAAT (NEGATIVE) Blood Type Antibody Screen Crossmatch 09/14/21 Range/Units 08:32 WBC (4.8-10.8) K/uL RBC (4.7-6.1) M/uL Hgb (14.0-18.0) g/dL POC Hgb (14.0-18.0) g/dl Hct (42-52) % POC Hct (42-52) % MCV (80-100) fL MCH (25-34) pg MCHC (32-36) g/dL RDW Std Deviation (36.4-46.3) fL RDW Coeff of Lukas (11.5-14.5) % Plt Count (130-400) K/uL MPV (7.4-10.4) fL Immature Gran % (Auto) % Neut % (Auto) % Lymph % (Auto) % [place] % (Auto) % Eos % (Auto) % Baso % (Auto) % Neut # (Auto) (1.4-6.5) K/uL Lymph # (Auto) (1.2-3.4) K/uL [place] # (Auto) (0.11-0.59) K/uL Eos # (Auto) (0-0.5) K/uL Baso # (Auto) (0-0.2) K/uL Immature Gran # (Auto) (0.00-0.02) K/uL Polychromasia Anisocytosis PT (9.0-12.0) Seconds INR (0.9-1.1) APTT (21.0-31.0) Seconds PTT Ratio POC Sodium (135-144) mmol/L Sodium (136-145) mmol/L POC Potassium (3.3-5.0) mmol/L Potassium (3.5-5.1) mmol/L POC Chloride (101-112) mmol/L Chloride (98-107) mmol/L Carbon Dioxide (21-32) mmol/L POC Total CO2 (24-31) mmol/L Anion Gap (3-11) POC Anion Gap (16-25) mmol/L POC BUN (7-18) mg/dl BUN (6-23) mg/dl Creatinine (0.6-1.4) mg/dl POC Creatinine (0.6-1.3) mg/dl Est Cr Clr Drug Dosing ml/min Est GFR ( Amer) ml/min Est GFR (Non-Af Amer) ml/min BUN/Creatinine Ratio (10-20) Glucose (70-99(Fasting)) mg/dl POC Glucose (other) (70-99) mg/dl Calcium (8.5-10.1) mg/dl POC Ioniz Calcium Aidan (1.12-1.32) mmol/l Total Bilirubin (0.2-1.0) mg/dl AST (13-39) U/L ALT (7-52) U/L Alkaline Phosphatase (34-104) U/L Troponin I High Sens (0-20) pg/ml Total Protein (6.0-8.3) gm/dl Albumin (3.4-5.0) gm/dl Globulin (2.5-4.0) gm/dl Albumin/Globulin Ratio (0.9-2) POC Stool Occult Blood (Negative) SARS-CoV-2, RNA, NAAT NEGATIVE (NEGATIVE) Blood Type Antibody Screen Crossmatch Administered Medications Pantoprazole Sodium 40 mg/ (Dextrose) 100 mls @ 20 mls/hr IV Q5H [facility] Stop: 10/14/21 08:29 Last Admin: 09/14/21 13:00 Dose: 8 mg/hr, 20 mls/hr Documented by: [id number] Infusion: 09/14/21 13:00 Dose: 8 mg/hr, 20 mls/hr Documented by: [id number] Admin: 09/14/21 09:07 Dose: 8 mg/hr, 20 mls/hr Documented by: [id number] Discontinued Medications Sodium Chloride (Nss) 500 mls @ 999 mls/hr IV .Q31M [facility] Stop: 09/14/21 08:45 Last Admin: 09/14/21 08:44 Dose: 999 mls/hr Documented by: [id number] Pantoprazole Sodium 80 mg/ (Dextrose) 120 mls @ 400 mls/hr IV NOW ONE Stop: 09/14/21 08:24 Last Admin: 09/14/21 08:43 Dose: 400 mls/hr Documented by: [id number] Ioversol (Optiray 320 100ml) 95 ml IV ONCE ONE Stop: 09/14/21 09:24 Last Admin: 09/14/21 09:23 Dose: 95 ml Documented by: [id number] Imaging Data Radiologist's Impression: Abdomen/Pelvis CT 09/14/21 08:[address] WITH IV CONTRAST CT DOSE: 495.63 mGy.cm HISTORY: Acute GI bleed with acute generalized abdominal pain gi bleed abd pain TECHNIQUE: Multiaxial CT images of the abdomen and pelvis were performed following the IV administration of 95 cc of Optiray, A dose lowering technique was utilized adhering to the principles of ALARA. COMPARISON STUDY: CT abdomen and pelvis 08/15/2021 FINDINGS: Coronary artery calcifications. Calcified right hilar lymph nodes. Subcentimeter subpleural nodular densities include a 4 mm nodule on image 61 within the left lower lobe. Mild bibasilar subsegmental atelectasis/scarring. No pneumatosis or pneumoperitoneum. The study is limited secondary to upper extremity positioning and respiratory motion artifact. Calcified granulomata of the spleen. Moderate to marked diffuse pancreatic atrophy. Unremarkable adrenal glands. Unchanged appearance of the gallbladder. No cholelithiasis. Unchanged appearance of the liver. No hepatic mass identified. Patency of the hepatic and portal veins. No hydronephrosis. 2.7 cm exophytic cyst within the superior pole left kidney. External renal pelvis versus parapelvic cyst of the left kidney is unchanged. Distended urinary bladder with prostamegaly. Major urinary bladder calculus. Atherosclerosis of the aorta without aneurysm. There is no lymphadenopathy. No bowel obstruction. Mild rectal wall thickening may be secondary to partial distention. Colonic diverticulosis without acute diverticulitis. Normal appendi x. No ascites or mesenteric inflammation. Mild gynecomastia. Degenerative changes of the spine pain, pelvis and right hip. Left hip total joint arthroplasty. Healing subacute bilateral rib fractures. Subacute displaced and foreshortened mid sternal fracture. Grade 1 anterolisthesis L4 on L5 is likely degenerative. IMPRESSION: 1. No bowel obstruction. 2. Colonic diverticulosis without acute diverticulitis. 3. Mild rectal wall thickening is likely secondary to partial distention. 4. Healing subacute bilateral rib fractures. There is unchanged alignment of the subacute and displaced mid sternal fracture which demonstrates mild interval bony healing. 5. Urinary bladder calculus. 6. Additional findings as above. ACT 112: Negative or not required by law. The above report was generated using voice recognition software. It may contain grammatical, syntax or spelling errors. Electronically signed by: Lino Gibbs M.D. 09/14/2021 10:00 AM Discharge Plan Visit Data Chief Complaint: GI Bleed ED Provider: Femi Hamlin Discharge Problem: Acute GI bleeding, Symptomatic anemia, Elevated BUN Forms Stand Alone Forms: [facility] [employer] Prescriptions Prescriptions: No Action (DME) catheter 16 Fr misc See Rx Instructions .Route Qty: 60 RF: 11 aspirin 81 mg tablet,delayed release (DR/EC) 81 mg PO QAM RF: 0 sennosides-docusate sodium 8.6-50 mg Tablet 2 tab-cap PO BID RF: 0 acetaminophen 500 mg Tablet 500 mg PO Q8H PRN (Reason: Pain) RF: 0 lidocaine [Lidoderm] 5 % Adhesive Patch,Medicated 1 patch TOPICAL QAM RF: 0 nystatin 100,000 unit/gram Powder 1 applic TOPICAL QS RF: 0 clopidogrel 75 mg tablet 75 mg PO QAM RF: 0 simvastatin 20 mg tablet 20 mg PO HS RF: 0 omeprazole 20 mg capsule,delayed release(DR/EC) 20 mg PO QAM RF: 0 Referrals Referrals: Iván Sanz III, CRNP [Primary Care Provider] -
[2021-09-14] MEDS ORDERED: SODIUM CHLORIDE 0.9% 500 ML IV SCH (08:15)
[2021-09-14 08:45] LABS: iSTAT Hemoglobin 6.1 g/dl (14.0-18.0); iSTAT Ionized Calcium 1.13 mmol/l (1.12-1.32); iSTAT Potassium 4.3 mmol/L (3.3-5.0)
[2021-09-14 09:00] LABS: INR 1.1 (0.9-1.1); Partial Thromboplastin Ratio 0.8; Partial Thromboplastin Time 22.5 Seconds (21.0-31.0); Prothrombin Time 11.4 Seconds (9.0-12.0)
[2021-09-14] MEDS: PANTOprazole 40 MG in DEXTROSE 5% 100 ML IV SCH ×4 (09:07→23:11)
[2021-09-14] MEDS ORDERED: OPTIRAY 320 100ml IV ONE (09:23)
[2021-09-14 09:32] LABS: Basophils # (auto) 0.04 K/uL (0-0.2); Basophils % (auto) 0.4 %; Eosinophils # (auto) 0.12 K/uL (0-0.5); Eosinophils % (auto) 1.1 %; Hematocrit (blood only) 19.7 % (42-52); Hemoglobin 6.6 g/dL (14.0-18.0); Immature Granulocytes # (auto) 0.05 K/uL (0.00-0.02); Immature Granulocytes % (auto) 0.5 %; Lymphocytes % (auto) 14.2 %; Mean Corpuscular Hemoglobin 31.1 pg (25-34); Mean Corpuscular Hgb Conc 33.5 g/dL (32-36); Mean Corpuscular Volume 92.9 fL (80-100); Mean Platelet Volume 9.2 fL (7.4-10.4); Monocytes # (auto) 0.72 K/uL (0.11-0.59); Monocytes % (auto) 6.8 %; Neutrophils # (auto) 8.11 K/uL (1.4-6.5); Platelet Count 309 K/uL (130-400); RDW Coefficient of Variation 15.3 % (11.5-14.5); RDW Standard Deviation 50.7 fL (36.4-46.3); Red Blood Count 2.12 M/uL (4.7-6.1); White Blood Count 10.54 K/uL (4.8-10.8)
[2021-09-14 09:40] LABS: Anisocytosis Present; Polychromasia 1+; Troponin I High Sensitivity 6.4 pg/ml (0-20)
--- NOTE | 2021-09-14 10:01 | CT Scan Report ---
ABDOMEN AND PELVIS CT WITH IV CONTRAST CT DOSE: 495.63 mGy.cm HISTORY: Acute GI bleed with acute generalized abdominal pain gi bleed abd pain TECHNIQUE: Multiaxial CT images of the abdomen and pelvis were performed following the IV administrat ion of 95 cc of Optiray, A dose lowering technique was utilized adhering to the principles of ALARA. COMPARISON STUDY: CT abdomen and pelvis 08/15/2021 FINDINGS: Coronary artery calcifications. Calcified right hilar lymph nodes. Subcentimeter subpleural nodular d ensities include a 4 mm nodule on image 61 within the left lower lobe. Mild bibasilar subsegmental at electasis/scarring. No pneumatosis or pneumoperitoneum. The study is limited secondary to upper extre mity positioning and respiratory motion artifact. Calcified granulomata of the spleen. Moderate to marked diffuse pancreatic atrophy. Unremarkable adre nal glands. Unchanged appearance of the gallbladder. No cholelithiasis. Unchanged appearance of the l iver. No hepatic mass identified. Patency of the hepatic and portal veins. No hydronephrosis. 2.7 cm exophytic cyst within the superior pole left kidney. External renal pelvis versus parapelvic cyst of the left kidney is unchanged. Distended urinary bladder with prostamegaly. Major urinary bladder calc ulus. Atherosclerosis of the aorta without aneurysm. There is no lymphadenopathy. No bowel obstruction. Mild rectal wall thickening may be secondary to partial distention. Colonic div erticulosis without acute diverticulitis. Normal appendix. No ascites or mesenteric inflammation. Mil d gynecomastia. Degenerative changes of the spine pain, pelvis and right hip. Left hip total joint ar throplasty. Healing subacute bilateral rib fractures. Subacute displaced and foreshortened mid sterna l fracture. Grade 1 anterolisthesis L4 on L5 is likely degenerative. IMPRESSION: 1. No bowel obstruction. 2. Colonic diverticulosis without acute diverticulitis. 3. Mild rectal wall thickening is likely secondary to partial distention. 4. Healing subacute bilateral rib fractures. There is unchanged alignment of the subacute and displac ed mid sternal fracture which demonstrates mild interval bony healing. 5. Urinary bladder calculus. 6. Additional findings as above. ACT 112: Negative or not required by law. The above report was generated using voice recognition software. It may contain grammatical, syntax o r spelling errors. Electronically signed by: Lino Gibbs M.D. 09/14/2021 10:00 AM
[2021-09-14 10:19] LABS: BUN Creatinine Ratio 42.4 (10-20); Calcium 8.5 mg/dl (8.5-10.1); Creatinine Clr Calc Pharmacy 55.7 ml/min; Est GFR (African American) 85.2 ml/min; Est GFR (Non-African American) 73.5 ml/min; Potassium 4.3 mmol/L (3.5-5.1)
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
[2021-09-14 10:24] LABS: Albumin Globulin Ratio 1.4 (0.9-2); Albumin Level 3.3 gm/dl (3.4-5.0); Bilirubin,Total 0.3 mg/dl (0.2-1.0); Globulin 2.4 gm/dl (2.5-4.0); Total Protein 5.7 gm/dl (6.0-8.3)
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
[2021-09-14] MEDS ORDERED: CATHETER SCH (21:00)
[2021-09-14 22:02] LABS: Hematocrit (blood only) 23.7 % (42-52); Hemoglobin 8.1 g/dL (14.0-18.0)
[2021-09-14] MEDS: SIMVASTATIN 20 MG TAB PO SCH (22:28)
[2021-09-15] MEDS: PANTOprazole 40 MG in DEXTROSE 5% 100 ML IV SCH ×4 (04:04→20:07)
[2021-09-15 06:45] LABS: Hematocrit (blood only) 24.5 % (42-52); Hemoglobin 8.2 g/dL (14.0-18.0); Mean Corpuscular Hemoglobin 30.5 pg (25-34); Mean Corpuscular Hgb Conc 33.5 g/dL (32-36); Mean Corpuscular Volume 91.1 fL (80-100); Mean Platelet Volume 9.2 fL (7.4-10.4); Platelet Count 235 K/uL (130-400); RDW Coefficient of Variation 15.9 % (11.5-14.5); RDW Standard Deviation 51.5 fL (36.4-46.3); Red Blood Count 2.69 M/uL (4.7-6.1); White Blood Count 7.68 K/uL (4.8-10.8)
[2021-09-15 06:56] LABS: BUN Creatinine Ratio 25.5 (10-20); Calcium 8.1 mg/dl (8.5-10.1); Est GFR (African American) 75.2 ml/min; Est GFR (Non-African American) 64.9 ml/min; Potassium 4.1 mmol/L (3.5-5.1)
--- NOTE | 2021-09-15 08:32 | Gastroenterology Progress Note ---
Date of Service September 15, 2021 Assessment & Plan (1) Acute GI bleeding: Plan: Acute GI bleeding: Patient admitted with anemia and burgundy stools with strong heme positive. High differential for aspirin induced peptic disease so continue PPI - can switch to oral PPI. Continue conservative measures without endoscopic intervention as he is a poor candidate at this time. He has received 2 units of packed red blood cells with stable hemoglobin 8.2 and hematocrit 24.5. He has had no stool output in the last 2 days per nursing documentation. Okay to advance to regular diet. Case reviewed with Dr. Heller. Please refer to supervising physician addendum for further recommendations. I have spent 25 minutes of discrete time performing the activities of this visit which include but are not limited to review of the medical record, obtaining a history, physical exam, and entering information in the electronic record. Admission and Anticipated Discharge Date Admission Date: September 14, 2021 Supervising Physician Co-Signing Physician Notes I have seen and examined the patient. I agree with note above by FRITZ Luna except as noted below. HPI Daughter and 2 other in room for H and P. Pt denies abd pain. Solid diet ordered and in front of patient. Hgb stable this am. PE Abdomen pos bs, soft, no guarding nor rebound, A/P GI bleeding. No scopes unless bleed profusely. Continue PPI and can use oral PPI. As the supervising physician, I , Derrick Heller MD have spent minutes of discrete time performing the activities of this visit which include but not limited to review of the medical records, obtaining a history, physical exam and entering information in the electronic record. FRITZ Luna has reported spending 25 minutes of discrete time with the activities of this visit. Subjective The patient is sitting in bed upright with his neck collar intact. He just finished ringing the nursing call nichols for help with readjustment as he is quite uncomfortable in bed. He feels as though he is doing a lot of hurry up and waiting. Denies any abdominal pain. No nausea or vomiting. No bowel movement since admission. Denies dizziness or lightheadedness. He is retired. 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 He believes he lives in a personal prison. He is a former smoker but has not smoked in 40 years. No alcohol intake. No IV drug use. He is a . He has 3 children and his oldest daughter Leora is his medical decision-maker. Review of Systems Review of Systems: All systems reviewed & are unremarkable except as noted in Subjective Physical Exam Constitutional: WD/WN, vitals as above Eyes: PERRL, conjunctivae normal, anicteric sclerae Neck: neck brace noted. Respiratory: normal respiratory effort, lungs clear to auscultation Cardiovascular: without murmur Gastrointestinal (Abdomen): pos bs, soft, no guarding nor rebound Neurologic: PERRL, EOMI, accommodation nl, no face palsy, no dysarthria Psychiatric: normal affect, poor insight Results & Data ([facility]) Vital Signs (Past 12 Hours) Vital Signs Temp Pulse Pulse Resp BP BP Pulse Ox 09/15/21 07:17 55 L 09/15/21 07:12 36.5 C 78 18 108/55 L 98 09/15/21 03:22 36.7 C 72 20 110/66 96 09/14/21 23:47 36.8 C 61 20 95/59 L 99 09/14/21 22:17 60 Laboratory Results Laboratory Results - last 24 hr 09/14/21 09/14/21 09/14/21 08:07 08:12 08:12 WBC 10.54 RBC 2.12 L Hgb 6.6 L* POC Hgb Hct 19.7 L* POC Hct MCV 92.9 MCH 31.1 MCHC 33.5 RDW Std Deviation 50.7 H RDW Coeff of Lukas 15.3 H Plt Count 309 MPV 9.2 Immature Gran % (Auto) 0.5 Neut % (Auto) 77.0 Lymph % (Auto) 14.2 [place] % (Auto) 6.8 Eos % (Auto) 1.1 Baso % (Auto) 0.4 Neut # (Auto) 8.11 H Lymph # (Auto) 1.50 [place] # (Auto) 0.72 H Eos # (Auto) 0.12 Baso # (Auto) 0.04 Immature Gran # (Auto) 0.05 H Polychromasia 1+ Anisocytosis Present PT INR APTT PTT Ratio POC Sodium Sodium POC Potassium Potassium POC Chloride Chloride Carbon Dioxide POC Total CO2 Anion Gap POC Anion Gap POC BUN BUN Creatinine POC Creatinine Est Cr Clr Drug Dosing Est GFR ( Amer) Est GFR (Non-Af Amer) BUN/Creatinine Ratio Glucose POC Glucose (other) Calcium POC Ioniz Calcium Aidan Total Bilirubin AST ALT Alkaline Phosphatase Troponin I High Sens Total Protein Albumin Globulin Albumin/Globulin Ratio Nasal Screen MRSA (PCR) POC Stool Occult Blood Negative SARS-CoV-2, RNA, NAAT Blood Type A Positive Antibody Screen NEGATIVE Crossmatch See Detail 09/14/21 09/14/21 09/14/21 08:12 08:12 08:26 WBC RBC Hgb POC Hgb 6.1 L* Hct POC Hct 18 L* MCV MCH MCHC RDW Std Deviation RDW Coeff of Lukas Plt Count MPV Immature Gran % (Auto) Neut % (Auto) Lymph % (Auto) [place] % (Auto) Eos % (Auto) Baso % (Auto) Neut # (Auto) Lymph # (Auto) [place] # (Auto) Eos # (Auto) Baso # (Auto) Immature Gran # (Auto) Polychromasia Anisocytosis PT 11.4 INR 1.1 APTT 22.5 PTT Ratio 0.8 POC Sodium 137 Sodium 136 POC Potassium 4.3 Potassium 4.3 POC Chloride 101 Chloride 104 Carbon Dioxide 24 POC Total CO2 23 L Anion Gap 8 POC Anion Gap 18.0 POC BUN 36 H BUN 39 H Creatinine 0.92 POC Creatinine 1.0 Est Cr Clr Drug Dosing 55.7 Est GFR ( Amer) 85.2 Est GFR (Non-Af Amer) 73.5 BUN/Creatinine Ratio 42.4 H Glucose 103 H POC Glucose (other) 106 H Calcium 8.5 POC Ioniz Calcium Aidan 1.13 Total Bilirubin 0.3 AST 17 ALT 9 Alkaline Phosphatase 84 Troponin I High Sens 6.4 Total Protein 5.7 L Albumin 3.3 L Globulin 2.4 L Albumin/Globulin Ratio 1.4 Nasal Screen MRSA (PCR) POC Stool Occult Blood SARS-CoV-2, RNA, NAAT Blood Type Antibody Screen Crossmatch 09/14/21 09/14/21 09/14/21 08:32 16:00 21:41 WBC RBC Hgb 8.1 L POC Hgb Hct 23.7 L POC Hct MCV MCH MCHC RDW Std Deviation RDW Coeff of Lukas Plt Count MPV Immature Gran % (Auto) Neut % (Auto) Lymph % (Auto) [place] % (Auto) Eos % (Auto) Baso % (Auto) Neut # (Auto) Lymph # (Auto) [place] # (Auto) Eos # (Auto) Baso # (Auto) Immature Gran # (Auto) Polychromasia Anisocytosis PT INR APTT PTT Ratio POC Sodium Sodium POC Potassium Potassium POC Chloride Chloride Carbon Dioxide POC Total CO2 Anion Gap POC Anion Gap POC BUN BUN Creatinine POC Creatinine Est Cr Clr Drug Dosing Est GFR ( Amer) Est GFR (Non-Af Amer) BUN/Creatinine Ratio Glucose POC Glucose (other) Calcium POC Ioniz Calcium Aidan Total Bilirubin AST ALT Alkaline Phosphatase Troponin I High Sens Total Protein Albumin Globulin Albumin/Globulin Ratio Nasal Screen MRSA (PCR) Negative POC Stool Occult Blood SARS-CoV-2, RNA, NAAT NEGATIVE Blood Type Antibody Screen Crossmatch 09/15/21 09/15/21 06:09 06:09 WBC 7.68 RBC 2.69 L Hgb 8.2 L POC Hgb Hct 24.5 L POC Hct MCV 91.1 MCH 30.5 MCHC 33.5 RDW Std Deviation 51.5 H RDW Coeff of Lukas 15.9 H Plt Count 235 MPV 9.2 Immature Gran % (Auto) Neut % (Auto) Lymph % (Auto) [place] % (Auto) Eos % (Auto) Baso % (Auto) Neut # (Auto) Lymph # (Auto) [place] # (Auto) Eos # (Auto) Baso # (Auto) Immature Gran # (Auto) Polychromasia Anisocytosis PT INR APTT PTT Ratio POC Sodium Sodium 138 POC Potassium Potassium 4.1 POC Chloride Chloride 108 H Carbon Dioxide 26 POC Total CO2 Anion Gap 4 POC Anion Gap POC BUN BUN 26 H Creatinine 1.02 POC Creatinine Est Cr Clr Drug Dosing 46.0 Est GFR ( Amer) 75.2 Est GFR (Non-Af Amer) 64.9 BUN/Creatinine Ratio 25.5 H Glucose 89 POC Glucose (other) Calcium 8.1 L POC Ioniz Calcium Aidan Total Bilirubin AST ALT Alkaline Phosphatase Troponin I High Sens Total Protein Albumin Globulin Albumin/Globulin Ratio Nasal Screen MRSA (PCR) POC Stool Occult Blood SARS-CoV-2, RNA, NAAT Blood Type Antibody Screen Crossmatch Diagnostic Findings Abdomen/Pelvis CT 09/14/21 08:[address] WITH IV CONTRAST CT DOSE: 495.63 mGy.cm HISTORY: Acute GI bleed with acute generalized abdominal pain gi bleed abd pain TECHNIQUE: Multiaxial CT images of the abdomen and pelvis were performed following the IV administration of 95 cc of Optiray, A dose lowering technique was utilized adhering to the principles of ALARA. COMPARISON STUDY: CT abdomen and pelvis 08/15/2021 FINDINGS: Coronary artery calcifications. Calcified right hilar lymph nodes. Subcentimeter subpleural nodular densities include a 4 mm nodule on image 61 within the left lower lobe. Mild bibasilar subsegmental atelectasis/scarring. No pneumatosis or pneumoperitoneum. The study is limited secondary to upper extremity positioning and respiratory motion artifact. Calcified granulomata of the spleen. Moderate to marked diffuse pancreatic atrophy. Unremarkable adrenal glands. Unchanged appearance of the gallbladder. No cholelithiasis. Unchanged appearance of the liver. No hepatic mass identified. Patency of the hepatic and portal veins. No hydronephrosis. 2.7 cm exophytic cyst within the superior pole left kidney. External renal pelvis versus parapelvic cyst of the left kidney is unchanged. Distended urinary bladder with prostamegaly. Major urinary bladder calculus. Atherosclerosis of the aorta without aneurysm. There is no lymphadenopathy. No bowel obstruction. Mild rectal wall thickening may be secondary to partial distention. Colonic diverticulosis without acute diverticulitis. Normal appendix. No ascites or mesenteric inflammation. Mild gynecomastia. Degenerative changes of the spine pain, pelvis and right hip. Left hip total joint arthroplasty. Healing subacute bilateral rib fractures. Subacute displaced and foreshortened mid sternal fracture. Grade 1 anterolisthesis L4 on L5 is likely degenerative. IMPRESSION: 1. No bowel obstruction. 2. Colonic diverticulosis without acute diverticulitis. 3. Mild rectal wall thickening is likely secondary to partial distention. 4. Healing subacute bilateral rib fractures. There is unchanged alignment of the subacute and displaced mid sternal fracture which demonstrates mild interval bony healing. 5. Urinary bladder calculus. 6. Additional findings as above. ACT 112: Negative or not required by law. The above report was generated using voice recognition software. It may contain grammatical, syntax or spelling errors. Electronically signed by: Lino Gibbs M.D. 09/14/2021 10:00 AM
[2021-09-15] MEDS: LIDOCAINE 5% 1 PATCH TD SCH (09:32)
[2021-09-15] MEDS ORDERED: METOPROLOL TARTRATE 1 MG/ML VIAL IV PRN (10:01)
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
[2021-09-15] MEDS ORDERED: POLYETHYLENE (MIRALAX) 17 GM PACK PO PRN (16:32)
[2021-09-15] MEDS ORDERED: ONDANSETRON INJ 2 MG/ML 2 ML VIAL IV PRN (16:34)
--- NOTE | 2021-09-15 17:46 | Electrocardiogram Report ---
Test Reason : Blood Pressure : / mmHG Vent. Rate : 060 BPM Atrial Rate : 060 BPM P-R Int : 178 ms QRS Dur : 066 ms QT Int : 424 ms P-R-T Axes : 047 036 064 degrees QTc Int : 424 ms Normal sinus rhythm Normal ECG When compared with ECG of 15-AUG-2021 19:28, No significant change was found Confirmed by Aleksander Hester ([id number]) on 09/15/2021 5:46:18 PM Referred By: Confirmed By:Jared Hester
--- NOTE | 2021-09-15 18:11 | Electrocardiogram Report ---
Test Reason : Blood Pressure : / mmHG Vent. Rate : 053 BPM Atrial Rate : 053 BPM P-R Int : 190 ms QRS Dur : 066 ms QT Int : 450 ms P-R-T Axes : 025 004 055 degrees QTc Int : 422 ms Sinus bradycardia Low voltage QRS Borderline ECG When compared with ECG of 14-SEP-2021 08:06, (unconfirmed) No significant change was found Confirmed by Aleksander Hester ([id number]) on 09/15/2021 6:11:31 PM Referred By: [facility] Confirmed By:Jared Hester
[2021-09-15] MEDS: SIMVASTATIN 20 MG TAB PO SCH (20:07)
[2021-09-16] MEDS: PANTOprazole 40 MG in DEXTROSE 5% 100 ML IV SCH ×2 (00:40→05:19)
[2021-09-16] MEDS: ACETAMINOPHEN 325 MG TAB PO PRN ×2 (05:17→21:02)
[2021-09-16] MEDS: MELATONIN 3 MG TAB PO PRN ×2 (05:17→21:02)
[2021-09-16 06:47] LABS: Basophils # (auto) 0.03 K/uL (0-0.2); Basophils % (auto) 0.4 %; Eosinophils % (auto) 3.6 %; Hematocrit (blood only) 25.9 % (42-52); Hemoglobin 8.6 g/dL (14.0-18.0); Immature Granulocytes # (auto) 0.03 K/uL (0.00-0.02); Immature Granulocytes % (auto) 0.4 %; Lymphocytes # (auto) 1.26 K/uL (1.2-3.4); Lymphocytes % (auto) 15.1 %; Mean Corpuscular Hemoglobin 30.6 pg (25-34); Mean Corpuscular Hgb Conc 33.2 g/dL (32-36); Mean Corpuscular Volume 92.2 fL (80-100); Mean Platelet Volume 9.2 fL (7.4-10.4); Monocytes # (auto) 0.93 K/uL (0.11-0.59); Monocytes % (auto) 11.1 %; Neutrophils # (auto) 5.81 K/uL (1.4-6.5); Neutrophils % (auto) 69.4 %; Platelet Count 241 K/uL (130-400); RDW Coefficient of Variation 15.8 % (11.5-14.5); Red Blood Count 2.81 M/uL (4.7-6.1); White Blood Count 8.36 K/uL (4.8-10.8)
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
[2021-09-16] MEDS ORDERED: ONDANSETRON INJ 2 MG/ML 2 ML VIAL IV PRN (08:06)
[2021-09-16] MEDS: LIDOCAINE 5% 1 PATCH TD SCH (08:26)
[2021-09-16] MEDS: PANTOprazole 40 MG TAB PO SCH ×2 (08:41→20:29)
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
[2021-09-16] MEDS: SIMVASTATIN 20 MG TAB PO SCH (20:28)
[2021-09-17] MEDS: ACETAMINOPHEN 325 MG TAB PO PRN ×2 (03:53→17:51)
[2021-09-17 06:52] LABS: Basophils # (auto) 0.02 K/uL (0-0.2); Basophils % (auto) 0.2 %; Eosinophils % (auto) 2.2 %; Hemoglobin 9.3 g/dL (14.0-18.0); Immature Granulocytes # (auto) 0.04 K/uL (0.00-0.02); Immature Granulocytes % (auto) 0.4 %; Lymphocytes # (auto) 1.02 K/uL (1.2-3.4); Mean Corpuscular Hemoglobin 30.5 pg (25-34); Mean Corpuscular Hgb Conc 33.2 g/dL (32-36); Mean Corpuscular Volume 91.8 fL (80-100); Mean Platelet Volume 9.1 fL (7.4-10.4); Monocytes # (auto) 0.97 K/uL (0.11-0.59); Monocytes % (auto) 10.5 %; Neutrophils # (auto) 6.99 K/uL (1.4-6.5); Neutrophils % (auto) 75.7 %; Platelet Count 265 K/uL (130-400); RDW Coefficient of Variation 15.7 % (11.5-14.5); Red Blood Count 3.05 M/uL (4.7-6.1); White Blood Count 9.24 K/uL (4.8-10.8)
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
[2021-09-17] MEDS: ASPIRIN 81 MG ECTAB PO SCH (09:00)
[2021-09-17] MEDS: PANTOprazole 40 MG TAB PO SCH ×2 (09:00→20:33)
[2021-09-17] MEDS: LIDOCAINE 5% 1 PATCH TD SCH (09:00)
[2021-09-17] MEDS ORDERED: DICLOFENAC SOD 1% GEL 100 GM TUBE EXT PRN (09:46)
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
[2021-09-17] MEDS: SIMVASTATIN 20 MG TAB PO SCH (20:34)
[2021-09-18 00:29] LABS: Hematocrit (blood only) 26.7 % (42-52); Hemoglobin 8.9 g/dL (14.0-18.0)
[2021-09-18 07:06] LABS: Hematocrit (blood only) 27.8 % (42-52); Hemoglobin 9.2 g/dL (14.0-18.0); Mean Corpuscular Hemoglobin 30.9 pg (25-34); Mean Corpuscular Hgb Conc 33.1 g/dL (32-36); Mean Corpuscular Volume 93.3 fL (80-100); Mean Platelet Volume 9.5 fL (7.4-10.4); Platelet Count 268 K/uL (130-400); RDW Coefficient of Variation 15.5 % (11.5-14.5); RDW Standard Deviation 52.5 fL (36.4-46.3); Red Blood Count 2.98 M/uL (4.7-6.1); White Blood Count 8.21 K/uL (4.8-10.8)
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
[2021-09-18 07:51] LABS: Lyme Ab IgG w/WB Rflx Negative (Negative); Lyme Ab IgM w/WB Rflx Negative (Negative)
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
[2021-09-18] MEDS: PANTOprazole 40 MG TAB PO SCH ×2 (09:04→20:07)
[2021-09-18] MEDS: LIDOCAINE 5% 1 PATCH TD SCH (09:05)
[2021-09-18] MEDS: ASPIRIN 81 MG ECTAB PO SCH (09:05)
--- NOTE | 2021-09-18 12:52 | Billing Data ---
Date of Service September 18, 2021 Coding Level of Care Code D/C DAY MANAGEMENT <30 MINS
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
[2021-09-18] MEDS: SIMVASTATIN 20 MG TAB PO SCH (20:07)
[2021-09-19] MEDS: PANTOprazole 40 MG TAB PO SCH (09:14)
[2021-09-19] MEDS: ASPIRIN 81 MG ECTAB PO SCH (09:14)
[2021-09-19] MEDS: LIDOCAINE 5% 1 PATCH TD SCH (09:15)
--- NOTE | 2021-09-19 16:24 | Billing Data ---
Date of Service September 19, 2021 Coding Level of Care Code D/C DAY MANAGEMENT <30 MINS
--- NOTE | 2021-09-19 16:25 | Billing Data ---
Date of Service September 18, 2021 Coding Level of Care Code 38182 Subseq Hosp Care Lvl 1
== END 2021-09-19 12:30 | DRG 378 ==
LOC: ED 07:56 → SUATTDRO 11:13 → 2S 11:13 → 3W 09-18 21:41